=== PATIENT | female | born 1935 | race Caucasian/White ===

== ENCOUNTER 2020-01-04 11:17 | Inpatient (IN) | payer OTHER, MEDICARE ==
--- OUTSIDE RECORDS SUMMARY | 2020-01-04 11:37 | XMS REPORT | Continuity of Care Document ---
:1935 Author Organization [facility] t Address [address] [place] [address] Care Team Providers Name Role Phone Unavailable Unavailable Unavailable Problems This patient has no known problems. Allergies, Adverse Reactions, Alerts This patient has no known allergies or adverse reactions. Medications This patient has no known medications. Procedures This patient has no known procedures. Results This patient has no known results.
[2020-01-04] MEDS ORDERED: DIPHENHYDRAMINE 25 MG TAB/CAP PO PRN (12:17)
[2020-01-04] MEDS ORDERED: LOPERAMIDE HCL 2 MG CAPSULE PO PRN (12:17)
[2020-01-04] MEDS ORDERED: SODIUM CHLORIDE 0.9% 10ML INJ IV PRN (12:23)
[2020-01-04] MEDS ORDERED: POLYETHYL GLY 3350 17 GM/DOSE PO PRN (12:23)
[2020-01-04 12:44] VITALS: BMI 31.1
[2020-01-04] MEDS ORDERED: ALBUTEROL 2.5 MG/3 ML NEB SOL NEB PRN (12:45)
[2020-01-04] MEDS ORDERED: ACETAMINOPHEN 325 MG TABLET PO PRN (12:45)
[2020-01-04 13:15] LABS: Absolute Lymphocytes (CBC) 0.6 K/uL (0.7-4.9); Basophils % 0.6 % (0-1.3); Hematocrit 26.5 % (36.0-45.0); Lymphocytes % 7.8 % (15.3-44.8); MPV 7.9 fL (7.6-11.3); RBC Red Blood Cell Count 2.54 M/uL (3.86-4.86)
[2020-01-04 13:58] LABS: ALT/SGPT 33 U/L (12-78); AST/SGOT 33 U/L (15-37); Albumin 3.1 g/dL (3.4-5.0); Alkaline Phosphatase 102 U/L (45-117); BUN Blood Urea Nitrogen 17 mg/dL (7-18); Bicarbonate 24 mmol/L (21-32); Bilirubin Direct 0.4 mg/dL (0-0.2); Bilirubin Total 1.3 mg/dL (0.2-1.0); Glucose Level 130 mg/dL (74-106); Phosphorus 2.6 mg/dL (2.5-4.9); Potassium 3.4 mmol/L (3.5-5.1); Protein, Total 6.5 g/dL (6.4-8.2); Sodium Level 136 mmol/L (136-145)
[2020-01-04] MEDS ORDERED: PNEUMOCOCCAL VACCINE 0.5 ML IMVAC ONE (14:00)
[2020-01-04] MEDS: NACHLORIDE 0.45% 1,000 ML IV SCH (14:27)
[2020-01-04] MEDS: CIPROFLOXACIN 400mg IV 400 MG/200 ML BAG IV SCH ×2 (14:27→20:25)
[2020-01-04] MEDS: METRONIDAZOLE 500mg IVPB 500 MG/100 ML BAG IV SCH ×2 (14:28→20:25)
[2020-01-04] MEDS: IPRATROPIUM BROM 0.5MG/2.5ML NEB SCH ×2 (14:43→20:00)
[2020-01-04] MEDS: LEVALBUTEROL 1.25 MG/3 ML NEB NEB SCH ×2 (14:43→20:00)
--- NOTE | 2020-01-04 14:44 | RAD REPORT ---
EXAM DESCRIPTION: CT - Chest Abdomen Pelvis W Cont - 01/04/2020 2:12 pm CLINICAL HISTORY: abdominal pain, chest pain COMPARISON: No comparisons TECHNIQUE: Following dynamic enhancement using 100 milliliters nonionic IV contrast, axial imaging o f the chest, abdomen and pelvis was performed. Biphasic technique was utilized through the abdomen. No oral contrast administered. All CT scans are performed using dose optimization technique as appropriate and may include automated exposure control or mA/KV adjustment according to patient size. FINDINGS: Large left pleural effusion is present with near complete atelectasis of the left lower lo be. Trace pleural fluid on the right. No acute infiltrate or mass of the lung parenchyma. No pneumoth orax. No significant aortic or pulmonary arterial tree finding. Mediastinal and hilar regions show no mass or abnormal lymphadenopathy. No chest wall mass or axillary lymphadenopathy. Mild fatty infiltration of the liver is present with no focal liver lesion. Pancreas and spleen witho ut suspicious finding. Gallbladder and biliary tree are unremarkable. Gallstones can be occult on CT imaging. Symmetric renal function is seen with no mass or hydronephrosis. No adrenal abnormalities. Patient has a very minimal hiatal hernia. No gastric wall thickening or mass. No dilated small bowel loops. Appendix is not well defined. No suspicion for appendicitis. Moderate stool volume in the righ t-side of the colon. An 8-9 cm long segment of the left transverse colon shows wall thickening. There is stranding and edema in the adjacent fat as well as the omentum. There are numerous small lymph no carlene in the adjacent fatty tissues. No gross evidence for a colon mass. Stranding abuts the lesser cur vature of the stomach but does not cause gastric wall thickening. There may be some minimal secondary involvement of adjacent small bowel loops. Patient has mild diverticulosis in the sigmoid colon. No other area of active colon disease. No free air or pneumatosis. There is free fluid in the peritoneal cavity collecting in the dependent portion of the pelvis. Uterus is absent. Ovaries are absent or atrophic. No acute or destructive bony process. No significant vascular findings. IMPRESSION: Left transverse colon wall thickening with adjacent edematous/ inflammatory stranding an d multiple adjacent small lymph nodes. This is most likely an acute diverticulitis or nonspecific colitis. The lymph nodes are more numerous than typically seen with a diverticulitis. Malignancy is not eviden t but cannot be excluded. A follow-up colonoscopy after completion of treatment will be needed. Free intraperitoneal fluid without abscess. No free air is present. Large left pleural effusion with near complete left lower lobe atelectasis.
[2020-01-04 19:27] LABS: Protime INR 1.26
[2020-01-04 20:02] LABS: Urine Appearance CLEAR; Urine Bilirubin NEGATIVE (NEG); Urine Blood NEGATIVE (NEG); Urine Color DK YELLOW; Urine Glucose NEGATIVE (NEG); Urine Protein 1+ (NEG); Urine Specific Gravity >=1.030 (1.005-1.030)
[2020-01-04 20:25] LABS: Urine Microscopic Reflex ORDER UMIC
[2020-01-04 20:34] LABS: Urine Bacteria <20 /HPF (<20); Urine Culture Reflex Order NOT NEEDED; Urine Mucus 1+ /HPF (NONE SEEN); Urine RBC NONE SEEN /HPF (NONE SEEN)
[2020-01-05] MEDS: LEVALBUTEROL 1.25 MG/3 ML NEB NEB SCH ×4 (01:50→20:50)
[2020-01-05] MEDS: IPRATROPIUM BROM 0.5MG/2.5ML NEB SCH ×4 (01:50→20:50)
[2020-01-05 05:20] LABS: Absolute Lymphocytes (CBC) 0.5 K/uL (0.7-4.9); Basophils % 0.9 % (0-1.3); Hematocrit 23.4 % (36.0-45.0); Lymphocytes % 11.4 % (15.3-44.8); MPV 7.7 fL (7.6-11.3); RBC Red Blood Cell Count 2.26 M/uL (3.86-4.86)
[2020-01-05 05:25] LABS: BUN Blood Urea Nitrogen 11 mg/dL (7-18); Bicarbonate 26 mmol/L (21-32); Glucose Level 124 mg/dL (74-106); Potassium 3.4 mmol/L (3.5-5.1); Sodium Level 139 mmol/L (136-145)
[2020-01-05] MEDS ORDERED: KCL 20 MEQ/100 mL IVPB 20 MEQ/100 ML BAG IV SCH (06:00)
[2020-01-05] MEDS: ONDANSETRON 4 MG/2 ML VIAL IV PRN ×2 (07:11→23:52)
[2020-01-05 07:30] LABS: Anisocytosis 1+; Blood Morphology Comment NOTED (NOT SEEN); Platelet Estimate ADEQ
[2020-01-05 07:31] LABS: Macrocytosis 1+
[2020-01-05] MEDS: CIPROFLOXACIN 400mg IV 400 MG/200 ML BAG IV SCH ×2 (08:54→21:17)
[2020-01-05] MEDS: METRONIDAZOLE 500mg IVPB 500 MG/100 ML BAG IV SCH ×4 (08:55→23:54)
[2020-01-05] MEDS: PANTOPRAZOLE 40 MG INJ IVP SCH (09:00)
[2020-01-05] MEDS ORDERED: ENOXAPARIN 40 MG/0.4 ML SQ SCH (09:00)
--- NOTE | 2020-01-05 11:45 | RAD REPORT ---
EXAM DESCRIPTION: RAD - Chest Single View - 01/05/2020 11:32 am CLINICAL HISTORY: POST THORA Chest pain. COMPARISON: CHEST PA AND LAT 2 VIEW dated 06/03/2015; CHEST PA AND LAT 2 VIEW dated 08/22/2008; Chest A bdomen Pelvis W Cont dated 01/04/2020 FINDINGS: Portable technique limits examination quality. No postprocedure pneumothorax is seen. Small opacity in the left lung base probably represents atelec tasis. Small volume residual left pleural fluid is likely present. Heart is moderately enlarged. No d isplaced fractures. IMPRESSION: No postprocedure pneumothorax.
--- NOTE | 2020-01-05 11:52 | RAD REPORT ---
EXAM DESCRIPTION: US - Thoracentesis w/ US Guide - 01/05/2020 11:46 am CLINICAL HISTORY: Pleural effusion. large pleural effusion COMPARISON: No comparisons FINDINGS: Preoperative diagnosis: Left pleural effusion Post operative diagnosis: Same Conscious Sedation: None. Estimated blood loss: Minimal Specimens:A small volume of fluid was sent for requested lab studies. The patient was placed in the upright recumbent position and the left posterior chest wall was preppe d and draped in the usual sterile fashion. 1% Lidocaine was infiltrated into the soft tissues for lo verónica anesthesia. Under sonographic guidance, a thoracentesis needle and 6 Serbian catheter was advance d into the left pleural space. Approximately 900 mL yellow fluid was aspirated. Samples were sent to pathology for requested analysis. The patient tolerated the procedure without immediate complication and transferred to the floor in stable condition. IMPRESSION: Successful ultrasound-guided thoracentesis as detailed.
--- NOTE | 2020-01-05 13:14 | P.PN ---
Subjective Date of Service: 01/05/20 Chief Complaint: DYSPNEA, COUGH. ABDOMEN PAIN. Subjective: Improving MS. GORDON IS FEELING A LOT BETTER, STILL HAS COUGH, SOME DYSPNEA, L SIDE ABDOMEN PAIN. Review of Systems Respiratory: Cough Gastrointestinal: Abdominal Pain ( LUQ) Physical Examination - Vital Signs Temperature: 97.9 F Blood Pressure: 132/64 Pulse: 93 Respirations: 15 Pulse Ox (%): 95 - Physical Exam General: Mild distress HEENT: Atraumatic, PERRLA, EOMI Neck: Supple, JVD not distended Respiratory: Clear to auscultation bilaterally, Normal air movement Cardiovascular: Regular rate/rhythm, Normal S1 S2 Gastrointestinal: Normal bowel sounds, No tenderness Musculoskeletal: No tenderness Integumentary: No rashes Neurological: Normal speech, Normal tone, Normal affect Lymphatics: No axilla or inguinal lymphadenopathy - Studies Laboratory Data (last 24 hrs) 01/05/20 04:57: WBC 4.3 D, Hgb 8.1 L, Hct 23.4 L, Plt Count 265 01/05/20 04:57: Sodium 139, Potassium 3.4 L, BUN 11, Creatinine 0.44 L, Glucose 124 H, Magnesium 2.0 01/04/20 18:55: PT 14.8 H, INR 1.26, APTT 26.0 01/04/20 13:00: Sodium 136, Potassium 3.4 L, BUN 17, Creatinine 0.62, Glucose 130 H, Phosphorus 2.6, Magnesium 2.0, Total Bilirubin 1.3 H, AST 33, ALT 33, Alkaline Phosphatase 102 01/04/20 13:00: WBC 7.7, Hgb 9.1 L, Hct 26.5 L, Plt Count 316 Medications List Reviewed: Yes Assessment And Plan - Current Problems (Diagnosis) (1) Acute diverticulitis of intestine Current Visit: Yes Status: Acute Plan: IV ABX. GI FOLLOW UP OUTPATIENT. DIVERTICULITIS MOST LIKELY CAN'T RULE OUT MALIGNANCY. (2) Pleural effusion Current Visit: Yes Status: Acute Plan: NEW SINCE 2015 I ORDERED DIAGNOSTIC AND THERAPEUTIC TAP. Orders (last 24 hrs) 01/04/20 12:17 Diphenhydramine [Benadryl Tab/Cap] 25 mg PO BEDTIME PRN Loperamide [Imodium] 4 mg PO Q4H PRN 01/04/20 12:23 Ns 0.9% Vial [Sodium Chloride 10 mL Inj] 10 ml IV UD PRN Ondansetron [Zofran] 4 mg IV Q6H PRN Polyethyl Gly 3350 [Glycolax] 17 gm PO BEDTIME PRN Activity Order SEECOM Cardiac Monitoring (telemetry) CONT Daily Weight 0500 Sequential Compression Device NOW 01/04/20 12:45 Acetaminophen [Tylenol -Tablet] 650 mg PO Q6H PRN Albuterol Neb [Proventil 0.083% Neb Soln] 2.5 mg NEB Q2H PRN 01/04/20 12:52 REFLEX ORDER Admit/Bed Request Routine 01/04/20 12:54 Magnesium Replacement 0600 Potassium Replacement 0600 01/04/20 13:00 Vitamin D,1,25 Dihydroxy Routine CIPROFLOXACIN 400mg IV [Cipro 400 mg/200 mL IVPB (PREMIX)] 400 mg in 200 ml IV Q12HR Nachloride 0.45% [Sodium Chloride 0.45%] 1,000 ml IV 30 mls/hr Blood Culture Stat 01/04/20 14:00 Ipratropium Neb [Atrovent Neb] 0.5 mg NEB [id number] Levalbuterol [Xopenex] 1.25 mg NEB [id number] METRONIDAZOLE 500mg IVPB [Flagyl 500MG/100 ML IV PREMIX] 500 mg in 100 ml IV TID 01/04/20 17:46 Nursing Orders Routine 01/04/20 21:51 SBAR Routine 01/05/20 00:01 NPO [DIET] 01/05/20 09:00 Pantoprazole Inj [Protonix Inj] 40 mg IVP DAILY 01/05/20 11:00 Body Fluid Cell Count Routine Miscellaneous Test Lab Routine Acid Fast Bacilli Culture & Sm Routine Body Fluid Culture Routine Fungal Culture and Stain Routine 01/05/20 11:07 Change Pt from Observation to Inpatient Routine 01/05/20 Dinner Full Liquid [DIET] 01/06/20 05:00 BMP [Basic Metabolic Panel] Routine
[2020-01-05 13:56] LABS: Appearance TURBID (CLEAR); Body Fluid Source PLEURAL; Body Fluid WBC 915 /mm^3; Color of fluid Yellow (COLORLESS)
[2020-01-05] MEDS ORDERED: POTASSIUM 25 MEQ EFFERV TAB PO ONE (19:00)
[2020-01-05] MEDS: NACHLORIDE 0.45% 1,000 ML IV SCH (22:20)
[2020-01-06] MEDS: IPRATROPIUM BROM 0.5MG/2.5ML NEB SCH ×2 (02:00→08:10)
[2020-01-06] MEDS: LEVALBUTEROL 1.25 MG/3 ML NEB NEB SCH ×2 (02:00→08:10)
[2020-01-06 05:53] LABS: BUN Blood Urea Nitrogen 9 mg/dL (7-18); Bicarbonate 27 mmol/L (21-32); Glucose Level 119 mg/dL (74-106); Potassium 3.9 mmol/L (3.5-5.1); Sodium Level 141 mmol/L (136-145)
[2020-01-06 07:16] LABS: Absolute Lymphocytes (CBC) 0.6 K/uL (0.7-4.9); Hematocrit 27.5 % (36.0-45.0); Lymphocytes % 9.8 % (15.3-44.8); MPV 7.9 fL (7.6-11.3); RBC Red Blood Cell Count 2.64 M/uL (3.86-4.86)
[2020-01-06] MEDS: CIPROFLOXACIN 400mg IV 400 MG/200 ML BAG IV SCH (08:09)
[2020-01-06] MEDS: METRONIDAZOLE 500mg IVPB 500 MG/100 ML BAG IV SCH (08:10)
[2020-01-06] MEDS: PANTOPRAZOLE 40 MG INJ IVP SCH (08:10)
[2020-01-06] MEDS ORDERED: POTASSIUM 25 MEQ EFFERV TAB PO ONE (09:00)
[2020-01-06 09:30] VITALS: O2SAT 96
[2020-01-06 09:31] VITALS: BP 133/63; TEMP 97.5
--- NOTE | 2020-01-06 14:56 | P.DS ---
Admission Date: 01/05/20 Discharge Date: 01/06/20 Disposition: ROUTINE DISCHARGE Discharge Condition: FAIR Reason for Admission: DYSPNEA, COUGH. ABDOMEN PAIN. - Problems (1) Acute diverticulitis of intestine Status: Acute (2) Pleural effusion Status: Acute Hospital Course: MS. GORDON HAS DIVERTICULITIS OF TR COLON. SHE IS FEELING GREAT WITH NO PAIN. SHE HAD LARGE PLEURAL EFFUSION ON L SIDE THAT I HAD DRAINED. SHE HAS TRANSUDATIVE FLUID AND CYTOLOGY IS PENDING. I WANT TO MAKE SURE THERE IS NO CANCER IN THE REGION. SHE SAYS HER GI DOCTOR DID NOT WANT TO DO ANY MORE SCOPES SHE IS 84 YEARS OLD. SHE IS FEELING GREAT AND WANTS TO GO HOME. SHE IS STABLE TO GO HOME ON ORAL ANTIBIOTICS. CT SCANS SHOWS MORE LYMPH NODES THAN USU AL IN ABDOMEN. I ADVISED COLONOSCOPY AFTER INFECTION IS CLEARED BUT SHE DOES NOT WANT TO . Vital Signs/Physical Exam: Temp Pulse Resp BP Pulse Ox 97.5 F 102 H 16 133/63 96 01/06/20 08:00 01/06/20 08:00 01/06/20 08:00 01/06/20 08:00 01/06/20 08:00 General: Alert, In no apparent distress HEENT: Atraumatic, PERRLA, EOMI Neck: Supple, JVD not distended Respiratory: Clear to auscultation bilaterally, Normal air movement Cardiovascular: Regular rate/rhythm, Normal S1 S2 Gastrointestinal: Normal bowel sounds, No tenderness Musculoskeletal: No tenderness Integumentary: No rashes Neurological: Normal speech, Normal tone, Normal affect Lymphatics: No axilla or inguinal lymphadenopathy Laboratory Data at Discharge: WBC 5.7 K/uL (4.3-10.9) D 01/06/20 06:45 Hgb 9.4 g/dL (12.0-15.0) L 01/06/20 06:45 Hct 27.5 % (36.0-45.0) L D 01/06/20 06:45 Plt Count 345 K/uL (152-406) D 01/06/20 06:45 PT 14.8 SECONDS (9.5-12.5) H 01/04/20 18:55 INR 1.26 01/04/20 18:55 APTT 26.0 SECONDS (24.3-36.9) 01/04/20 18:55 Sodium 141 mmol/L (136-145) 01/06/20 05:04 Potassium 3.9 mmol/L (3.5-5.1) 01/06/20 05:04 BUN 9 mg/dL (7-18) 01/06/20 05:04 Creatinine 0.53 mg/dL (0.55-1.3) L 01/06/20 05:04 Glucose 119 mg/dL (74-106) H 01/06/20 05:04 Phosphorus 2.6 mg/dL (2.5-4.9) 01/04/20 13:00 Magnesium 2.0 mg/dL (1.8-2.4) 01/05/20 04:57 Total Bilirubin 1.3 mg/dL (0.2-1.0) H 01/04/20 13:00 AST 33 U/L (15-37) 01/04/20 13:00 ALT 33 U/L (12-78) 01/04/20 13:00 Alkaline Phosphatase 102 U/L (45-117) 01/04/20 13:00 Home Medications: Ciprofloxacin HCl [Cipro 500 MG Tablet] 500 mg PO BID #28 tab 01/06/20 metroNIDAZOLE [Flagyl] 500 mg PO Q8H #42 tablet 01/06/20 New Medications: Ciprofloxacin HCl [Cipro 500 MG Tablet] 500 mg PO BID #28 tab metroNIDAZOLE [Flagyl] 500 mg PO Q8H #42 tablet Patient Discharge Instructions: COME TO OFFICE IN ONE WEEK. MAKE APT. Followup: Trenton Nathan MD [Primary Care Provider] - 1 Week (Call to make an appointment. )
[2020-01-08 12:59] LABS: Vitamin D 1,25-Dihydroxy Total 42 pg/mL (18-72); Vitamin D,1,25-OH2, D2 <8 pg/mL
== END 2020-01-06 10:28 | disposition home or self-care (01) | DRG 392 ==
LOC: 2ND 11:33 → OBSVTOIN 01-05 11:07
PROVIDERS: ADMIT Internal Medicine; ATTEND Internal Medicine
PROC: 0W9B3ZZ Drainage of Left Pleural Cavity, Percutaneous Approach (ICD-10-PCS; principal; 2020-01-05)
DX: K57.32 Diverticulitis of large intestine without perforation or abscess without bleeding (principal); J90 Pleural effusion, not elsewhere classified
CPT/HCPCS: 32555; 36415; 71045; 71260; 74177; 80048; 80076; 81003; 81015; 82607; 82652; 83735; 84100; 84132; 84443; 85025; 85610; 85730; 87015; 87040; 87070; 87102; 87116; 87206; 88108; 88305; 89050; 90471; 90670; 94640; C9113; G0378; G0379; J0744; J2405; J3480; Q9967; U0003

== ENCOUNTER 2021-12-21 20:09 | Emergency (ER) | payer OTHER, MEDICARE ==
--- OUTSIDE RECORDS SUMMARY | 2021-12-21 20:22 | XMS REPORT | Continuity of Care Document ---
:1935 Author Organization [facility] t Address [address] [place] [id number] Care Team Providers Name Role Phone YAS CEE Attending Clinician Unavailable Payers Payer Name Policy Type Policy Number Effective Date Expiration Date S tere MEDICARE PART A \T\ [id number] 1999 B 00:00:00 [facility] [id number] 2015 MEDICARE SUPPLEMENT 00:00:00 Problems This patient has no known problems. Allergies, Adverse Reactions, Alerts Allergy Allergy Status Severity Reaction(s) Onset Inactive Treating Comm ents Source Name Type Date Date Clinician NO KNOWN Drug Active [facility] ALLERGIE Class [facility] Medications This patient has no known medications. Procedures This patient has no known procedures. Encounters Start End Encounter Admission Attending Care Care Encounter Source Date/Time Date/Time Type Type Clinicians Facility Department ID 2020-06-23 2020-06-23 Outpatient Rosy CEE [facility] [id number] [facility] 08:55:00 08:55:00 YAS [facility] Results This patient has no known results.
[2021-12-21 20:45] LABS: Urine Blood Negative (Negative); Urine Glucose Negative (Negative); Urine Protein Negative (Negative); Urine Specific Gravity <=1.005 (1.005-1.030); Urine pH 6.5 (5.0-7.0)
[2021-12-21 21:16] LABS: Absolute Lymphocytes (CBC) 1.3 K/uL (0.7-4.9); Hematocrit 23.9 % (36.0-45.0); Lymphocytes % 28.8 % (15.3-44.8); MCV 110.8 fL (80-100); MPV 7.4 fL (7.6-11.3); RBC Red Blood Cell Count 2.15 M/uL (3.86-4.86)
--- NOTE | 2021-12-21 21:24 | RAD REPORT ---
EXAM DESCRIPTION: RAD - Chest Single View - 12/21/2021 9:16 pm CLINICAL HISTORY: Chest pain COMPARISON: Chest Single View dated 01/05/2020; CHEST PA AND LAT 2 VIEW dated 06/03/2015; CHEST PA AND LAT 2 VIEW dated 08/22/2008 FINDINGS: Lines: None. Lungs: No evidence of edema or pneumonia. Pleural: No significant pleural effusions or pneumothorax. Cardiac: Cardiomegaly. Bones: No acute fractures. Other: IMPRESSION: No acute cardiopulmonary disease.
[2021-12-21 21:34] LABS: Potassium 3.9 mmol/L (3.5-5.1); Troponin High Sensitivity 8.3 pg/mL (<58.9)
[2021-12-21 22:12] LABS: Blood Morphology Comment NOTED (NOT SEEN); Macrocytosis 2+; Platelet Estimate ADEQ; White Blood Cell Scan OK (OK)
--- NOTE | 2021-12-21 23:36 | EDPHYS ---
Physician Documentation [facility] Name: Claudia Thomas Age: 86 yrs Sex: Female : 1935 Arrival Date: 12/21/2021 Time: 20:12 Bed 6 Private MD: ED Physician Terrence Up HPI: 12/22 02:04 This 86 yrs old Female presents to ER via Ambulatory with complaints of Shortness Of kdr Breath, Leg Swelling, Headache. 02:05 Patient's daughter brought her to the the ED today with a concern for shortness of kdr breath and swelling of her lower extremities. Patient had been to urgent care earlier today and had an evaluation there. No etiology was found at that time. It was thought that perhaps she may have some mild congestive heart failure. The daughter had taken the patient home from urgent care and noted that it seemed her lower extremity swelling was progressively worsening as she had some ecchymosis on the lateral aspect of her left ankle. Given that the daughter felt things were progressing. She brought her to the ED for further evaluation. Patient is not in any acute distress and does not require emergent intervention at time of presentation. Onset: The symptoms/episode began/occurred gradually, at an unknown time. Severity of symptoms: At their worst the symptoms were mild moderate just prior to arrival, in the emergency department the symptoms are unchanged. The patient has not experienced similar symptoms in the past. The patient has been recently seen by a physician: The patient has been recently seen at an urgent care, just prior to arrival, today. Historical: - Allergies: 12/21 20:28 No Known Allergies; lg3 - Home Meds: 20:28 losartan 100 mg oral tab 1 tab once daily [Active]; furosemide 20 mg Oral tab 1 tab lg3 once daily [Active]; - PMHx: 20:28 hypertension; CHF; Anemia; lg3 - PSHx: 20:28 hysterectomy; lg3 - Immunization history:: Adult Immunizations up to date, moderna X3. - Social history:: Smoking status: Patient denies any tobacco usage or history of. Patient/guardian denies using alcohol, street drugs. ROS: 12/22 02:05 Constitutional: Negative for fever, chills, and weight loss, Eyes: Negative for injury, kdr pain, redness, and discharge, Neck: Negative for injury, pain, and swelling, Cardiovascular: Negative for chest pain, palpitations, and edema, Respiratory: Negative for shortness of breath, cough, wheezing, and pleuritic chest pain, Abdomen/GI: Negative for abdominal pain, nausea, vomiting, diarrhea, and constipation, Back: Negative for injury and pain, : Negative for injury, bleeding, discharge, and swelling, MS/Extremity: Negative for injury and deformity. Cardiovascular: Positive for edema. Respiratory: Positive for dyspnea on exertion, shortness of breath, on exertion. Exam: 02:05 Constitutional: This is a well developed, well nourished patient who is awake, alert, kdr and in no acute distress. Head/Face: Normocephalic, atraumatic. Eyes: Pupils equal round and reactive to light, extra-ocular motions intact. Lids and lashes normal. Conjunctiva and sclera are non-icteric and not injected. Cornea within normal limits. Periorbital areas with no swelling, redness, or edema. Neck: Trachea midline, no thyromegaly or masses palpated, and no cervical lymphadenopathy. Supple, full range of motion without nuchal rigidity, or vertebral point tenderness. No Meningismus. Chest/axilla: Normal chest wall appearance and motion. Nontender with no deformity. No lesions are appreciated. Cardiovascular: Regular rate and rhythm with a normal S1 and S2. No gallops, murmurs, or rubs. Normal PMI, no JVD. No pulse deficits. Respiratory: Lungs have equal breath sounds bilaterally, clear to auscultation and percussion. No rales, rhonchi or wheezes noted. No increased work of breathing, no retractions or nasal flaring. Abdomen/GI: Soft, non-tender, with normal bowel sounds. No distension or tympany. No guarding or rebound. No evidence of tenderness throughout. Back: No spinal tenderness. No costovertebral tenderness. Full range of motion. MS/ Extremity: Pulses equal, no cyanosis. Neurovascular intact. Full, normal range of motion. Neuro: Awake and alert, GCS 15, oriented to person, place, time, and situation. Cranial nerves II-XII grossly intact. Motor strength 5/5 in all extremities. Sensory grossly intact. Cerebellar exam normal. Normal gait. Psych: Awake, alert, with orientation to person, place and time. Behavior, mood, and affect are within normal limits. 02:05 Skin: Appearance: normal except for affected area, ecchymosis, noted on the, left lateral ankle, that are mild. Vital Signs: 12/21 20:26 BP 150 / 49; Pulse 83; Resp 18 S; Temp 98.1(O); Pulse Ox 99% on R/A; Weight 83.01 kg lg3 (R); Height 5 ft. 4 in. (162.56 cm) (R); 20:52 BP 140 / 59; Pulse 84; Resp 18; Pulse Ox 99% on R/A; Pain 0/10; tw5 21:46 BP 134 / 56; Pulse 78; Resp 20; Pulse Ox 98% on R/A; hb 22:50 BP 130 / 59; Pulse 76; Resp 18; Pulse Ox 97% on R/A; tw5 23:21 BP 132 / 52; Pulse 74; Resp 15; Pulse Ox 97% ; hb 20:26 Body Mass Index 31.41 (83.01 kg, 162.56 cm) lg3 MDM: 23:36 Patient medically screened. kdr 12/22 02:05 Data reviewed: vital signs, nurses notes, lab test result(s), radiologic studies. kdr Counseling: I had a detailed discussion with the patient and/or guardian regarding: the historical points, exam findings, and any diagnostic results supporting the discharge/admit diagnosis, lab results, radiology results, the need for outpatient follow up. ED course: Patient remained stable in the ED. She had no obvious evidence of extensive or progressive pulmonary edema or peripheral edema. She was happy with the care provided the plan for discharge and follow-up. I reviewed all of the laboratory data with the daughter and patient. I respond to questions as needed. They were happy with the care provider and the plan for discharge and follow-up.. 12/21 20:46 Order name: Urine Dipstick-Ancillary; Complete Time: 21:42 EDMS 12/21 20:53 Order name: Basic Metabolic Panel; Complete Time: 21:42 kdr 12/21 20:53 Order name: CBC with Diff; Complete Time: 22:23 kdr 12/21 20:53 Order name: NT PRO-BNP; Complete Time: 21:42 kdr 12/21 20:53 Order name: Troponin HS; Complete Time: 21:42 kdr 12/21 21:20 Order name: CBC Smear Scan; Complete Time: 22:23 EDVA 12/21 20:53 Order name: XRAY Chest (1 view); Complete Time: 21:42 kdr 12/21 20:53 Order name: EKG; Complete Time: 20:54 kdr 12/21 20:53 Order name: Cardiac monitoring; Complete Time: 20:58 kdr 12/21 20:53 Order name: EKG - Nurse/Tech; Complete Time: 22:55 kdr 12/21 20:53 Order name: IV Saline Lock; Complete Time: 20:58 kdr 12/21 20:53 Order name: Labs collected and sent; Complete Time: 20:58 kdr 12/21 20:53 Order name: O2 Per Protocol; Complete Time: 20:59 kdr 12/21 21:42 Order name: US Extremity Venous W Compression Pete kdr 12/21 20:53 Order name: O2 Sat Monitoring; Complete Time: 20:59 kdr Administered Medications: No medications were administered Disposition Summary: 12/21/21 23:36 Discharge Ordered Location: Home kdr Problem: new kdr Symptoms: have improved kdr Condition: Stable kdr Diagnosis - Shortness of breath kdr - Lower extremity swelling bilateral kdr Followup: kdr - With: Private Physician - When: 2 - 3 days - Reason: If symptoms return, Further diagnostic work-up, Recheck today's complaints, Continuance of care, Re-evaluation by your physician Discharge Instructions: - Discharge Summary Sheet kdr - Shortness of Breath, Adult, [id number] kdr - Cough, Adult, [id number] kdr Forms: - Medication Reconciliation Form kdr - Thank You Letter kdr Signatures: Dispatcher [employer] [facility] Terrence Up MD MD kdr Marina Khan, RN RN lg3
--- NOTE | 2021-12-21 23:36 | ER ---
Nurse's Notes [facility] Name: Claudia Thomas Age: 86 yrs Sex: Female : 1935 Arrival Date: 12/21/2021 Time: 20:12 Bed 6 Private MD: Diagnosis: Shortness of breath;Lower extremity swelling bilateral Presentation: 12/21 20:26 Chief complaint: Patient's son or daughter states: went to urgent care this afternnon lg3 for ABD and throat pain and discharged. now she is extremely short of breath and her left leg is really swollen. Coronavirus screen: Client denies travel out of the [place] in the last 14 days. At this time, the client does not indicate any symptoms associated with coronavirus-19. Ebola Screen: No symptoms or risks identified at this time. Initial Sepsis Screen: Does the patient meet any 2 criteria? No. Patient's initial sepsis screen is negative. Does the patient have a suspected source of infection? No. Patient's initial sepsis screen is negative. Risk Assessment: Do you want to hurt yourself or someone else? Patient reports no desire to harm self or others. Onset of symptoms is unknown. 20:26 Method Of Arrival: Ambulatory lg3 20:26 Acuity: ALFRED 3 lg3 Triage Assessment: 20:28 General: Appears in no apparent distress. uncomfortable, Behavior is calm, cooperative. lg3 Pain: Complains of pain in suprapubic area. EENT: No deficits noted. No signs and/or symptoms were reported regarding the EENT system. Neuro: No deficits noted. Level of Consciousness is awake, alert, obeys commands, Oriented to person, place, time, situation. Cardiovascular: Reports shortness of breath, Denies chest pain, Capillary refill < 3 seconds Clubbing of nail beds is absent JVD is absent Patient's skin is warm and dry. Respiratory: Reports shortness of breath Breath sounds are clear bilaterally. Onset: The symptoms/episode began/occurred today, the patient has mild shortness of breath. GI: Abdomen is round non-distended, Reports lower abdominal pain. : No deficits noted. No signs and/or symptoms were reported regarding the genitourinary system. Derm: Skin is intact, is healthy with good turgor, Skin is dry, Skin temperature is warm Parent/caregiver reports the patient having increased swelling to lower left leg and abdomen. Musculoskeletal: No deficits noted. No signs and/or symptoms reported regarding the musculoskeletal system. Circulation, motion, and sensation intact. Range of motion: intact in all extremities. Historical: - Allergies: 20:28 No Known Allergies; lg3 - Home Meds: 20:28 losartan 100 mg oral tab 1 tab once daily [Active]; furosemide 20 mg Oral tab 1 tab lg3 once daily [Active]; - PMHx: 20:28 hypertension; CHF; Anemia; lg3 - PSHx: 20:28 hysterectomy; lg3 - Immunization history:: Adult Immunizations up to date, moderna X3. - Social history:: Smoking status: Patient denies any tobacco usage or history of. Patient/guardian denies using alcohol, street drugs. Screenin:33 Abuse screen: Denies threats or abuse. Denies injuries from another. Nutritional lg3 screening: No deficits noted. Tuberculosis screening: No symptoms or risk factors identified. 20:52 Fall Risk Secondary diagnosis (15 points). tw5 Assessment: 20:52 General: Daughter at the bedside " She went to the urgent care today, they did a CT tw5 scan for her diverticulites. There is sheet of paper at the bedside that states what all they did. She has a headache, she is short of breath and extremely swollen.". Neuro: Level of Consciousness is awake, alert, obeys commands, Oriented to person, place, time, situation. Cardiovascular: Heart tones S1 S2 present Pulses are 1+ in left dorsalis pedis artery are 2+ in right dorsalis pedis artery Edema is 1+ to left ankle, left foot and left toes Rhythm is regular. Respiratory: Airway is patent Trachea midline Respiratory effort is even, unlabored. : Urine is clear. 21:46 Reassessment: Patient appears in no apparent distress at this time. Patient and/or hb family updated on plan of care and expected duration. Pain level reassessed. Patient is alert, oriented x 3, equal unlabored respirations, skin warm/dry/pink. 22:50 General: Appears in no apparent distress. Behavior is calm, cooperative, appropriate tw5 for age. 23:21 Reassessment: Patient appears in no apparent distress at this time. Patient and/or hb family updated on plan of care and expected duration. Pain level reassessed. Patient is alert, oriented x 3, equal unlabored respirations, skin warm/dry/pink. Vital Signs: 20:26 BP 150 / 49; Pulse 83; Resp 18 S; Temp 98.1(O); Pulse Ox 99% on R/A; Weight 83.01 kg lg3 (R); Height 5 ft. 4 in. (162.56 cm) (R); 20:52 BP 140 / 59; Pulse 84; Resp 18; Pulse Ox 99% on R/A; Pain 0/10; tw5 21:46 BP 134 / 56; Pulse 78; Resp 20; Pulse Ox 98% on R/A; hb 22:50 BP 130 / 59; Pulse 76; Resp 18; Pulse Ox 97% on R/A; tw5 23:21 BP 132 / 52; Pulse 74; Resp 15; Pulse Ox 97% ; hb 20:26 Body Mass Index 31.41 (83.01 kg, 162.56 cm) lg3 ED Course: 20:12 Patient arrived in ED. ja2 20:28 Triage completed. lg3 20:28 Arm band placed on left wrist. lg3 20:39 Marline Starkey is Primary Nurse. tw5 20:52 Terrence Up MD is Attending Physician. kdr 20:52 Patient has correct armband on for positive identification. Placed in gown. Bed in low tw5 position. Call light in reach. Adult w/ patient. Client placed on continuous cardiac and pulse oximetry monitoring. NIBP monitoring applied. Door closed. Noise minimized. Moved to private room. Warm blanket given. Verbal reassurance given. 20:59 Basic Metabolic Panel Sent. tw5 20:59 CBC with Diff Sent. tw5 20:59 NT PRO-BNP Sent. tw5 20:59 Troponin HS Sent. tw5 21:18 XRAY Chest (1 view) In Process Unspecified. EDMS 22:41 US Extremity Venous W Compression Pete In Process Unspecified. EDMS 23:56 No provider procedures requiring assistance completed. IV discontinued, intact, hb bleeding controlled, No redness/swelling at site. Administered Medications: No medications were administered Medication: 23:57 VIS not applicable for this client. hb Outcome: 23:36 Discharge ordered by . kdr 23:56 Discharged to home via wheelchair. hb 23:56 Condition: stable 23:56 Discharge instructions given to patient, family, Instructed on discharge instructions, follow up and referral plans. Demonstrated understanding of instructions, follow-up care. 23:57 Patient left the ED. Signatures: Dispatcher [employer] Terrence Law MD MD kdr Baxter, Heather RN RN Marina Reis RN RN lg3 Anna Olvera Tiffany 5
[2021-12-22 02:03] VITALS: TEMP 98.1
[2021-12-22 02:11] VITALS: O2SAT 97
[2021-12-22 02:13] VITALS: BP 132/52
--- NOTE | 2021-12-22 10:21 | EKG ---
Test Date: 2021-12-21 Test Time: 21:28:53 Quarter Backer: GILMAR MEASUREMENT RESULTS: Intervals: Rate: 77 LA: 186 QRSD: 88 QT: 438 QTc: 495 Aurora: P: 65 LA: 186 QRS: 38 T: 48 INTERPRETIVE STATEMENTS: Normal sinus rhythm Prolonged QT Abnormal ECG Compared to ECG 07/30/2011 09:19:16 Prolonged QT interval now present Electronically Signed On 12-22-21 10:19:59 CDT by Dre Romero
--- NOTE | 2021-12-22 15:29 | RAD REPORT ---
EXAM DESCRIPTION: US - Extrem Venous W Compress Pete - 12/21/2021 10:40 pm CLINICAL HISTORY: Left calf swelling today TECHNIQUE: Real-time duplex ultrasound scan of the bilateral lower extremity veins integrating B-mod e two-dimensional vascular structure, Doppler spectral analysis, color flow Doppler imaging and compr ession. COMPARISON: No relevant prior studies available. FINDINGS: Right deep veins: Unremarkable. No DVT in the right common femoral, femoral, proximal deep femoral, popliteal or visualized calf veins. The veins demonstrate normal color flow, are norm ally compressible, with normal phasic flow and/or augmentation response. Right superficial veins: Unremarkable. No thrombus in the visualized right great saphenous vein. Left deep veins: Unremarkable. No DVT in the left common femoral, femoral, proximal deep femoral, popliteal or visualized calf veins. The veins demonstrate normal color flow, are normally compress ible, with normal phasic flow and/or augmentation response. Left superficial veins: Unremarkable. No thrombus in the visualized left great saphenous vein. Soft tissues: No acute findings. No popliteal cyst. IMPRESSION: No evidence for deep venous thrombosis within the bilateral lower extremity. Electronically signed by: Blaine Gregory MD 12/21/2021 11:14 PM CDT Due to temporary technical issues with the PACS/Fluency reporting system, reports are being signed by the in house radiologists without review as a courtesy to insure prompt reporting. The interpreting radiologist is fully responsible for the content of the report.
== END 2021-12-21 23:57 | disposition home or self-care (01) ==
LOC: ER 20:09
DX: R06.02 Shortness of breath (principal); R22.43 Localized swelling, mass and lump, lower limb, bilateral; I10 Essential (primary) hypertension; I50.9 Heart failure, unspecified
CPT/HCPCS: 36415; 71045; 80048; 81003; 83880; 84484; 85025; 93005; 93970; 99283

== ENCOUNTER 2021-12-23 13:29 | Inpatient (IN) | payer OTHER, MEDICARE ==
--- OUTSIDE RECORDS SUMMARY | 2021-12-23 13:32 | XMS REPORT | Continuity of Care Document ---
:1935 Author Organization [facility] t Address [address] [place] [id number] Care Team Providers Name Role Phone YAS CEE Attending Clinician Unavailable Payers Payer Name Policy Type Policy Number Effective Date Expiration Date S tere MEDICARE PART A \T\ [id number] 1999 B 00:00:00 [facility] [id number] 2015 MEDICARE SUPPLEMENT 00:00:00 Problems This patient has no known problems. Allergies, Adverse Reactions, Alerts Allergy Allergy Status Severity Reaction(s) Onset Inactive Treating Comm ents Source Name Type Date Date Clinician NO KNOWN Drug Active [facility] This patient has no known medications. Procedures This patient has no known procedures. Encounters Start End Encounter Admission Attending Care Care Encounter Source Date/Time Date/Time Type Type Clinicians Facility Department ID 2020-06-23 2020-06-23 Outpatient Rosy CEE [facility] [id number] [facility] 08:55:00 08:55:00 YAS [facility] Results This patient has no known results.
[2021-12-23 14:30] LABS: Absolute Lymphocytes (CBC) 1.1 K/uL (0.7-4.9); Lymphocytes % 22.6 % (15.3-44.8); MCV 110.8 fL (80-100); MPV 7.3 fL (7.6-11.3); RBC Red Blood Cell Count 2.17 M/uL (3.86-4.86)
[2021-12-23 14:39] LABS: SARS-CoV-2 Antigen Rapid Res Negative (Negative)
[2021-12-23 14:50] LABS: Albumin 3.5 g/dL (3.4-5.0); Bilirubin Total 0.7 mg/dL (0.2-1.0); Protein, Total 6.2 g/dL (6.4-8.2)
--- NOTE | 2021-12-23 15:02 | RAD REPORT ---
EXAM DESCRIPTION: RAD - Chest Single View - 12/23/2021 2:55 pm CLINICAL HISTORY: SOB COMPARISON: Chest Single View dated 12/21/2021; Chest Single View dated 01/05/2020; CHEST PA AND LAT 2 VIEW dated 06/03/2015; CHEST PA AND LAT 2 VIEW dated 08/22/2008 FINDINGS: Lines: None. Lungs: No evidence of edema or pneumonia. Pleural: No significant pleural effusions or pneumothorax. Cardiac: Cardiomegaly. Atherosclerosis . Mediastinum: Within normal limits. Bones: No acute fractures. Other: None IMPRESSION: No acute cardiopulmonary disease.
--- NOTE | 2021-12-23 15:30 | RAD REPORT ---
EXAM DESCRIPTION: CTAbdomen Pelvis W Contrast - 12/23/2021 3:02 pm CLINICAL HISTORY: Lower abdominal pain. hx of diverticulitis COMPARISON: No comparisons TECHNIQUE: CT of the abdomen and pelvis was performed. All CT scans are performed using dose optimization technique as appropriate and may include automated exposure control or mA/KV adjustment according to patient size. FINDINGS: Lower chest: Mild circumferential thickened distal esophagus. Cardiomegaly. Liver: Too small characterize liver lesions which are most certainly benign. Biliary: No biliary ductal dilatation. Stomach: No significant focal abnormality. Duodenum: No significant focal abnormality. Pancreas: No significant abnormality. Spleen: No significant abnormality. Adrenal: No suspicious lesions. Kidney/ureter: No hydronephrosis. No renal calculi. Retroperitoneum: No retroperitoneal adenopathy. Vascular: No aneurysm. Bowel: Possible neoplasm at the mid transverse colon. No bowel obstruction is identified. This is non circumferential.. No appendicitis. Peritoneum: No ascites or free air. Bladder: Grossly unremarkable. Reproductive: No adnexal masses. Hysterectomy. Bones: No acute fracture. Multilevel degenerative changes are present in the spine. Other: n/a IMPRESSION: No acute intra-abdominal or pelvic finding. Findings are suspicious for a non circumfere ntial colonic neoplasm at the level of the mid transverse colon. Colonoscopy could better evaluate. N o bowel obstruction.
--- NOTE | 2021-12-23 15:42 | ER ---
Nurse's Notes [facility] Name: Claudia Thomas Age: 86 yrs Sex: Female : 1935 Arrival Date: 12/23/2021 Time: 13:32 Bed 7 Private MD: Trenton Nathan V Diagnosis: Lower abdominal pain, unspecified;Anemia, unspecified;Shortness of breath Presentation: 12/23 13:37 Chief complaint: Patient states: and my lower back hurts Patient's son or daughter tw2 states: she has internal bleeding going on per Dr. Birmingham. she is supposed to have a stat prx. she is loosing a lot of blood but not sure where. she is exhausted and swelling in her stomach and in her leg. she was just here on Wednesday and we saw dr. birmingham's PA yesterday. Coronavirus screen: At this time, the client does not indicate any symptoms associated with coronavirus-19. Ebola Screen: Patient denies travel to an Ebola-affected area in the 21 days before illness onset. Initial Sepsis Screen: Does the patient meet any 2 criteria? No. Patient's initial sepsis screen is negative. Does the patient have a suspected source of infection? No. Patient's initial sepsis screen is negative. Risk Assessment: Do you want to hurt yourself or someone else? Patient reports no desire to harm self or others. Onset of symptoms was December 23, 2021. 13:37 Method Of Arrival: Ambulatory tw2 13:37 Acuity: ALFRED 3 tw2 Triage Assessment: 13:44 General: Appears in no apparent distress. Behavior is calm, cooperative, appropriate tw2 for age. Pain: Complains of pain in back. Neuro: Level of Consciousness is awake, alert, obeys commands, Oriented to person, place, time, situation. GI: Reports bloating. Historical: - Allergies: 13:42 No Known Allergies; tw2 - Home Meds: 13:42 furosemide 20 mg Oral tab 1 tab once daily [Active]; losartan 100 mg Oral tab 1 tab tw2 once daily [Active]; - PMHx: 13:42 Anemia; CHF; Hypertension; tw2 - PSHx: 13:42 hysterectomy; tw2 - Immunization history:: Client reports receiving the 2nd dose of the Covid vaccine. - Social history:: Smoking status: Patient denies any tobacco usage or history of. Patient uses alcohol, occasionally. once or twice a week, per pts daughter hx of heavy drink 30 years ago. Screenin:53 Abuse screen: Denies threats or abuse. Nutritional screening: No deficits noted. tw2 Tuberculosis screening: No symptoms or risk factors identified. Fall Risk Secondary diagnosis (15 points) impaired mobility. Assessment: 14:27 Reassessment: Daughter reports Hgb was 8.9 Wednesday morning and 8.2 Wednesday evening. jl7 16:00 Reassessment: No changes from previously documented assessment. Patient and/or family jg9 updated on plan of care and expected duration. Pain level reassessed. Patient is alert, oriented x 3, equal unlabored respirations, skin warm/dry/pink. Vital Signs: 13:37 BP 127 / 47; Pulse 92; Resp 17; Temp 98.1(O); Pulse Ox 97% on R/A; Weight 81.19 kg (R); tw2 Height 5 ft. 4 in. (162.56 cm); 16:00 BP 124 / 53; Pulse 79; Resp 15 S; Pulse Ox 97% on R/A; Pain 8/10; jg9 13:37 Body Mass Index 30.72 (81.19 kg, 162.56 cm) tw2 13:37 "pressure all the time" tw2 ED Course: 13:32 Patient arrived in ED. rg4 13:33 Trenton Nathan MD is Private Physician. rg4 13:37 Arm band placed on. tw2 13:42 Triage completed. tw2 13:46 Bed in low position. Call light in reach. Adult w/ patient. tw2 13:47 Quirino Epperson DO is Attending Physician. ms3 13:49 Ino Adhikari, DINESH is Primary Nurse. jl7 14:10 EKG done, by ED staff, reviewed by Quirino Epperson DO. jl7 14:13 SARS RAPID Sent. ms3 14:26 Initial lab(s) drawn, by ED staff, sent to lab. Inserted saline lock: 20 gauge in left jl7 antecubital area, using aseptic technique. Blood collected. inserted by KJ. 14:57 XRAY Chest (1 view) In Process Unspecified. EDMS 15:04 CT Abd/Pelvis - IV Contrast Only In Process Unspecified. EDMS 15:41 Trenton Nathan MD is Hospitalizing Provider. ms3 19:07 No provider procedures requiring assistance completed. Patient admitted, IV remains in jl7 place. intact, No redness/swelling at site. Administered Medications: 16:35 Drug: morphine 2 mg Route: IVP; Infused Over: 2 mins; Site: left antecubital; jg9 16:36 Drug: Zofran (Ondansetron) 4 mg Route: IVP; Site: left antecubital; jg9 16:36 CANCELLED (Duplicate Order): Zofran (Ondansetron) 4 mg IVP once; over 2 minutes jg9 Medication: 19:07 VIS not applicable for this client. jl7 Outcome: 15:42 Decision to Hospitalize by Provider. ms3 19:07 Admitted to ER Hold. Please see [facility] for further documentation. jl7 19:07 Condition: stable 19:07 Discharge instructions given to patient, family, Instructed on the need for admit, Demonstrated understanding of instructions. 12/24 12:55 Patient left the ED. tw2 Signatures: Dispatcher [employer] EDMS Aydee Waddell, RN RN tw2 Melina Oro rg4 Ino Adhikari RN RN jl7 Quirino Epperson DO DO ms3 Astrid Wang, RN RN jg9
--- NOTE | 2021-12-23 15:43 | EDPHYS ---
Physician Documentation [facility] Name: Claudia Thomas Age: 86 yrs Sex: Female : 1935 Arrival Date: 12/23/2021 Time: 13:32 Bed 7 Private MD: Trenton Nathan V ED Physician Quirino Epperson HPI: 12/23 15:28 This 86 yrs old Female presents to ER via Ambulatory with complaints of Abdominal Pain, ms3 Back Pain, Weakness. 15:28 86-year-old female with past medical history of anemia, congestive heart failure, ms3 hypertension presents for lower abdominal pain that she rates a /. Patient states she was seen in the [place] ER and the [facility] ER for similar symptoms. Patient saw Dr. Boo yesterday. Patient's daughter states they called Dr. Boo's office and were referred to the emergency department. Patient states her pain has become worse since it originally started on Wednesday. Patient denies bloody or black stools, nausea, vomiting, diarrhea, fevers, chills. Patient states her primary care physician is Dr. Nathan. Historical: - Allergies: 13:42 No Known Allergies; tw2 - Home Meds: 13:42 furosemide 20 mg Oral tab 1 tab once daily [Active]; losartan 100 mg Oral tab 1 tab tw2 once daily [Active]; - PMHx: 13:42 Anemia; CHF; Hypertension; tw2 - PSHx: 13:42 hysterectomy; tw2 - Immunization history:: Client reports receiving the 2nd dose of the Covid vaccine. - Social history:: Smoking status: Patient denies any tobacco usage or history of. Patient uses alcohol, occasionally. once or twice a week, per pts daughter hx of heavy drink 30 years ago. ROS: 15:30 Constitutional: Negative for fever, and chills. Neck: Negative for injury, pain, and ms3 swelling, Cardiovascular: Negative for chest pain, and palpitations. Respiratory: Negative for shortness of breath, cough, wheezing, and pleuritic chest pain. 15:30 Skin: Negative for injury, rash, and discoloration. 15:30 Abdomen/GI: Positive for abdominal pain, Negative for nausea, vomiting, and diarrhea. 15:30 All other systems are negative. Exam: 14:08 ECG was reviewed by the Attending Physician. ms3 15:30 Constitutional: This is a well developed, well nourished patient who is awake, alert, ms3 and in no acute distress. Neck: Trachea midline, no cervical lymphadenopathy. Supple, full range of motion without nuchal rigidity, or vertebral point tenderness. No Meningismus. Chest/axilla: Normal chest wall appearance and motion. Nontender with no deformity. Cardiovascular: Regular rate and rhythm with a normal S1 and S2. No gallops, murmurs, or rubs. Normal PMI, no JVD. No pulse deficits. Respiratory: Lungs have equal breath sounds bilaterally, clear to auscultation and percussion. No rales, rhonchi or wheezes noted. No increased work of breathing, no retractions or nasal flaring. 15:30 Skin: Warm, dry with normal turgor. Normal color with no rashes, no lesions, and no evidence of cellulitis. MS/ Extremity: Pulses equal, no cyanosis. Neurovascular intact. Full, normal range of motion. Psych: Awake, alert, with orientation to person, place and time. Behavior, mood, and affect are within normal limits. 15:30 Abdomen/GI: Inspection: abdomen appears normal, Bowel sounds: normal, Palpation: moderate abdominal tenderness, in the right lower quadrant and left lower quadrant. Vital Signs: 13:37 BP 127 / 47; Pulse 92; Resp 17; Temp 98.1(O); Pulse Ox 97% on R/A; Weight 81.19 kg (R); tw2 Height 5 ft. 4 in. (162.56 cm); 16:00 BP 124 / 53; Pulse 79; Resp 15 S; Pulse Ox 97% on R/A; Pain 8/10; jg9 13:37 Body Mass Index 30.72 (81.19 kg, 162.56 cm) tw2 13:37 "pressure all the time" tw2 MDM: 14:00 Patient medically screened. ms3 15:30 Differential diagnosis: Diverticulitis vs abdominal pain vs anemia. ms3 15:37 Physician consultation: Remy Boo MD was called at 15:37, regarding consult, and ms3 will see patient Will preform colonoscopy tomorrow. Would like prep started.. 15:46 Data reviewed: vital signs, nurses notes, lab test result(s), radiologic studies, and ms3 as a result, I will admit patient. Data interpreted: residential monitor: rate is 77 beats/min, rhythm is normal sinus rhythm, regular, with no ectopy, Interpretation: normal rate, normal rhythm. Counseling: I had a detailed discussion with the patient and/or guardian regarding: the historical points, exam findings, and any diagnostic results supporting the discharge/admit diagnosis, lab results, radiology results, the need for further work-up and treatment in the hospital. ED course: Discussed case with Dr Nathan. He accepts patient as observation and is aware of colonoscopy prep and Dr Boo's plan for colonoscopy tomorrow.. 15:56 ED course: RN to call Dr Boo for colonic prep.. ms3 12/23 14:01 Order name: CBC with Diff; Complete Time: 15:20 ms3 12/23 14:01 Order name: NT PRO-BNP; Complete Time: 15:20 ms3 12/23 14:01 Order name: Troponin HS; Complete Time: 15:20 ms3 12/23 14:01 Order name: CMP; Complete Time: 15:20 ms3 12/23 14:01 Order name: Lipase; Complete Time: 15:20 ms3 12/23 14:12 Order name: SARS RAPID; Complete Time: 15:20 ms3 12/23 14:01 Order name: XRAY Chest (1 view); Complete Time: 15:20 ms3 12/23 14:01 Order name: CT Abd/Pelvis - IV Contrast Only; Complete Time: 15:32 ms3 12/23 14:13 Order name: Type And Screen ms3 12/23 20:47 Order name: ABO/RH no charge; Complete Time: 03:10 EDMS 12/24 05:18 Order name: CBC with Automated Diff EDMS 12/24 05:29 Order name: Basic Metabolic Panel EDMS 12/24 05:29 Order name: Liver (Hepatic) Function EDMS 12/24 09:02 Order name: CBC Smear Scan EDMS 12/23 14:01 Order name: EKG; Complete Time: 14:02 ms3 12/23 14:01 Order name: Cardiac monitoring; Complete Time: 14:26 ms3 12/23 14:01 Order name: EKG - Nurse/Tech; Complete Time: 14:12 ms3 12/23 14:01 Order name: IV Saline Lock; Complete Time: 14:26 ms3 12/23 14:01 Order name: Labs collected and sent; Complete Time: 14: ms3 12/23 14:01 Order name: O2 Per Protocol; Complete Time: 14: ms3 12/23 14:01 Order name: O2 Sat Monitoring; Complete Time: 14: ms3 12/23 14:01 Order name: IV Saline Lock; Complete Time: 14:28 ms3 EC:08 Rate is 88 beats/min. Rhythm is regular. QRS [place] is Normal. AR interval is normal. ms3 Clinical impression: NSR w/ Non-specific ST/T Changes. Interpreted by me. Reviewed by me. Administered Medications: 16:35 Drug: morphine 2 mg Route: IVP; Infused Over: 2 mins; Site: left antecubital; jg9 16:36 Drug: Zofran (Ondansetron) 4 mg Route: IVP; Site: left antecubital; jg9 16:36 CANCELLED (Duplicate Order): Zofran (Ondansetron) 4 mg IVP once; over 2 minutes jg9 Disposition Summary: 12/23/21 15:42 Hospitalization Ordered Hospitalization Status: Observation ms3 Provider: Trenton Nathan ms3 Condition: Stable ms3 Problem: new ms3 Symptoms: are unchanged ms3 Bed/Room Type: Standard ms3 Location: [facility] ER HOLD(12/23/21 15:49) kc6 Room Assignment: ERHOLD-(12/23/21 15:49) kc6 Diagnosis - Lower abdominal pain, unspecified ms3 - Anemia, unspecified ms3 - Shortness of breath ms3 Forms: - Medication Reconciliation Form ms3 - SBAR form ms3 Signatures: Dispatcher [employer] EDMS Aydee Waddell RN RN tw2 Ino Adhikari RN RN jl7 Quirino Epperson DO DO ms3 Astrid Wang RN RN jg9 Kayla Gutierrez PA PA jamie3 Mraia Elena Meneses kc6 Corrections: (The following items were deleted from the chart) 15:30 15:28 86-year-old female with past medical history of anemia, congestive heart failure, ms3 hypertension presents for lower abdominal pain that she rates a 7/10. Patient states she was seen in the [place] ER and the [facility] ER for similar symptoms. Patient saw Dr. Boo yesterday. Patient's daughter states they called Dr. Boo's office and were referred to the emergency department. Patient states her pain has become worse since it originally started. ms3 15:49 15:37 Physician consultation: Remy Boo MD was called at 15:37, regarding consult, ms3 ms3 15:49 15:42 Telemetry/MedSurg (observation) ms3 kc6 15:49 15:42 ms3 kc6 16:36 16:36 Zofran (Ondansetron) 4 mg IVP once; over 2 minutes ordered. jg9 jg9
[2021-12-23] MEDS ORDERED: ONDANSETRON 4 MG/2 ML VIAL IV PRN (15:54)
[2021-12-23] MEDS ORDERED: ACETAMINOPHEN 500 MG TAB PO PRN (15:54)
[2021-12-23] MEDS ORDERED: D5 0.45 NS 1,000 ML IV SCH (16:00)
[2021-12-23] MEDS ORDERED: MORPHINE 2 MG/ML SYR ONE (16:04)
[2021-12-23] MEDS ORDERED: METOCLOPRAMIDE 10 MG/2mL INJ ONE (16:57)
[2021-12-23] MEDS ORDERED: D5 0.45 NS 1,000 ML IV ONE (16:58)
[2021-12-23] MEDS ORDERED: METOCLOPRAMIDE 10 MG/2mL INJ IV SCH ×2 (17:00→23:00)
[2021-12-23] MEDS ORDERED: MAGNESIUM CITRATE 300 ML BOT PO SCH (17:30)
[2021-12-23] MEDS ORDERED: GOLYTELY 4000 ML PO SCH ×2 (18:00→22:00)
[2021-12-23] MEDS: D5 0.45 NS 1,000 ML IV SCH (20:24)
[2021-12-23] MEDS ORDERED: NA CHLORIDE 0.9% 1,000 ML ONE (23:16)
[2021-12-24] MEDS ORDERED: METOCLOPRAMIDE 10 MG/2mL INJ ONE (01:22)
[2021-12-24] MEDS ORDERED: NA CHLORIDE 0.9% 50 ML ONE (01:23)
[2021-12-24 05:17] LABS: Absolute Lymphocytes (CBC) 1.2 K/uL (0.7-4.9); Hematocrit 29.9 % (36.0-45.0); Lymphocytes % 24.9 % (15.3-44.8); MCV 103.3 fL (80-100); MPV 7.6 fL (7.6-11.3)
[2021-12-24 05:26] LABS: Albumin 3.4 g/dL (3.4-5.0); Bilirubin Direct 0.4 mg/dL (0-0.2); Bilirubin Total 1.4 mg/dL (0.2-1.0); Potassium 3.8 mmol/L (3.5-5.1); Protein, Total 5.9 g/dL (6.4-8.2)
[2021-12-24] MEDS ORDERED: D5 0.45 NS 1,000 ML IV ONE (05:30)
[2021-12-24] MEDS ORDERED: PNEUMOCOCCAL VACCINE 0.5 ML IMVAC ONE ×2 (07:00→08:11)
[2021-12-24] MEDS ORDERED: LOSARTAN POTASSIUM 50 MG TABLET ONE (08:11)
[2021-12-24] MEDS: LOSARTAN POTASSIUM 50 MG TABLET PO SCH (08:15)
[2021-12-24 09:01] LABS: Anisocytosis 1+; Blood Morphology Comment NOTED (NOT SEEN); Macrocytosis 1+; Platelet Estimate ADEQ; White Blood Cell Scan OK (OK)
[2021-12-24] MEDS ORDERED: Ringers Lactate 1,000 ML IV ONE (13:08)
[2021-12-24] MEDS ORDERED: propofoL 200 MG/20 ML VIAL IV ONE (15:21)
[2021-12-24] MEDS ORDERED: LIDOCAINE 1% MPF 5 ML VIAL ONE (15:21)
--- NOTE | 2021-12-24 15:45 | ENDO RPT ---
[address], [address] EGD PROCEDURE REPORT EXAM DATE: 12/24/2021 PATIENT NAME: Claudia Thomas MR#: [id number] BIRTHDATE: 1935 ATTENDING: Remy Boo Dr STATUS: inpatient - [facility] CATEGORY SPECIALIST: Maria Elena Jeffrey RN and Anna Thomas CST INDICATIONS: The patient is a 86 yr old Female here for an EGD due to iron deficiency anemia PROCEDURE PERFORMED: EGD with biopsy MEDICATIONS: Per Anesthesia. TOPICAL ANESTHETIC: none CONSENT: The patient understands the risks and benefits of the procedure and understands that these risks include, but are not limited to: sedation, allergic reaction, infection, perforation and/or bleeding. Alternative means of evaluation and treatment include, among others: physical exam, x-rays, and/or surgical intervention. The patient elects to proceed with this endoscopic procedure. DESCRIPTION OF PROCEDURE: During intra-op preparation period all mechanical medical equipment was checked for proper function. Hand hygiene and appropriate measures for infection prevention was taken. Procedure, possible complications, and alternatives including but not limited to the possibility of bleeding, perforation, tear, infection, sepsis, need for surgery, need for blood transfusion, and anesthesia related complications were explained to the patient. After the risks, benefits and alternatives of the procedure were thoroughly explained, Informed consent was verified, confirmed and timeout was successfully executed by the treatment team. The patient was placed in the left lateral position. The patient was anesthetized with topical anesthesia. Through the anesthetized oropharyngeal area, the scope was passed without any difficulty. The EG-[id number] ([id number]) endoscope was introduced through the mouth and advanced to the third portion of the duodenum. Retroflexed views revealed a small hiatal hernia. The gastroscope was then slowly withdrawn and removed. A small hiatal hernia was found Mild gastritis was found in the antrum. Multiple biopsies were obtained and sent to pathology. Small bowel biopsies obtained with history of iron deficiency anemia. ADVERSE EVENTS: There were no complications. IMPRESSIONS: 1. Small hiatal hernia 2. Mild gastritis in the antrum, s/p biopsies 3. Small bowel biopsies obtained with history of iron deficiency anemia RECOMMENDATIONS: 1. await biopsy results 2. acid suppression therapy REPEAT EXAM: Remy Boo Dr eSigned: Remy Boo Dr 12/24/2021 3:45 PM cc: Trenton Nathan CPT CODES: ICD9 CODES: PATIENT NAME: Claudia Thomas MR#: [id number]
--- NOTE | 2021-12-24 16:14 | ENDO RPT ---
[address], [address] COLONOSCOPY PROCEDURE REPORT EXAM DATE: 12/24/2021 PATIENT NAME: Claudia Thomas MR #: [id number] BIRTHDATE: 1935 ATTENDING: Remy Boo Dr STATUS: inpatient - 7 INSIDE SALES EXECUTIVE: Maria Elena Jeffrey RN and Anna Thomas CST INDICATIONS: The patient is a 86 yr old Female here for a colonoscopy due to iron deficiency anemia and abnormal CT of abdomen PROCEDURE PERFORMED: Colonoscopy with biopsy MEDICATIONS: Per Anesthesia. ESTIMATED BLOOD LOSS: None CONSENT: The patient understands the risks and benefits of the procedure and understands that these risks include, but are not limited to: sedation, allergic reaction, infection, perforation and/or bleeding. Alternative means of evaluation and treatment include, among others: physical exam, x-rays, and/or surgical intervention. The patient elects to proceed with this endoscopic procedure. DESCRIPTION OF PROCEDURE: During intra-op preparation period all mechanical medical equipment was checked for proper function. Hand hygiene and appropriate measures for infection prevention was taken. Procedure, possible complications, alternatives including, but not limited to possibility of bleeding, perforation, tear, infection, sepsis, need for surgery, need for blood transfusion, were explained to the patient. After the risks, benefits and alternatives of the procedure were thoroughly explained, Informed consent was verified, confirmed and timeout was successfully executed by the treatment team. The patient was placed in the left lateral position. A digital rectal exam was performed and revealed external hemorrhoids. After appropriate level of anesthesia, the scope was passed. The EG-[id number] ([id number]) and [id number] ([id number]) endoscope was introduced through the anus and advanced to the cecum. The quality of the prep was fair. The instrument was then slowly withdrawn as the colon was fully examined. Scope withdrawal time was 10 minutes. COLON FINDINGS: A half circumferential firm, fungating and ulcerated 5 cm mass with friable surfaces was found in the distal transverse colon. Mild diverticulosis was noted in the sigmoid colon. No bleeding was noted from the diverticulosis. Moderate sized internal hemorrhoids were found. Retroflexed views revealed medium hemorrhoids. The scope was then completely withdrawn from the patient and the procedure terminated. ADVERSE EVENTS: There were no complications. IMPRESSIONS: 1. Half circumferential 5 cm mass in the distal transverse colon 2. Mild diverticulosis in the sigmoid colon 3. Moderate sized internal hemorrhoids 4. Intubation to cecum RECOMMENDATIONS: 1. await biopsy results 2. avoid NSAIDS for 2 weeks 3. surgery consult RECALL: Return in 1 year(s) for Colonoscopy. Remy Boo Dr eSigned: Remy Boo Dr 12/24/2021 4:14 PM cc: Trenton Nathan CPT CODES: ICD9 CODES: 1. 455.5 External hemorrhoids with other complication 2. 239.0 Neoplasm of unspecified nature of digestive system PATIENT NAME: Claudia Thomas Aranza MR#: [id number]
[2021-12-24 16:36] VITALS: O2SAT 100
[2021-12-24 18:05] VITALS: BMI 30.7
--- NOTE | 2021-12-24 18:14 | P.HP ---
Certification for Inpatient Patient admitted to: Inpatient With expected LOS: >2 Midnights Practitioner: I am a practitioner with admitting privileges, knowledge of patient current condition, hospital course, and medical plan of care. 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 SHE COMES IN WITH ABDOMEN PAIN AND DYSPNEA. SHE ON CT HAS COLON MASS AND ANEMIA OF 8 G. I GAVE HER TWO UNITS OF BLOOD AT NIGHT AND CALLED DR. VIRGEN TO DO COLONOSCOPY. SHE FELT GREAT THIS AM AFTER BLOOD. DR. VIRGEN DID COLONOSCOPY AND FOUND HER TO HAVE ASCENDING COLON CANCER. I CALLED DR. BUSCH TO TAKE CARE OF PARTIAL COLECTOMY. Allergies No Known Allergies Allergy (Verified 01/04/20 12:42) Home medications list reviewed: Yes Home Medications: Furosemide 20 mg PO DAILY 12/23/21 Losartan Potassium 100 mg PO DAILY 12/23/21 - Past Medical/Surgical History Has patient received pneumonia vaccine in the past: No Diabetic: No -: Bladder infection -: HTN -: CHF - Family History Mother -: Heart disease Father -: Heart disease - Social History Smoking Status: Never smoker Alcohol use: No CD- Drugs: No Caffeine use: No Place of Residence: Home Review of Systems 10-point ROS is otherwise unremarkable General: Weakness Physical Examination - Vital Signs Temperature: 97.8 F Blood Pressure: 136/56 Pulse: 75 Respirations: 18 Pulse Ox (%): 97 - Physical Exam General: Oriented x3, Acute distress, Mild distress HEENT: Atraumatic, PERRLA, Mucous membr. moist/pink, EOMI, Sclerae nonicteric Neck: Supple, 2+ carotid pulse no bruit, No LAD, Without JVD or thyroid abnormality Respiratory: Clear to auscultation bilaterally, Normal air movement Cardiovascular: Regular rate/rhythm, Normal S1 S2 Gastrointestinal: Normal bowel sounds, No tenderness Musculoskeletal: No tenderness Integumentary: No rashes Neurological: Normal gait, Normal speech, Normal strength at 5/5 x4 extr, Normal tone, Normal affect Lymphatics: No axilla or inguinal lymphadenopathy Assessment and Plan - Problems (Diagnosis) (1) Severe anemia Current Visit: Yes Status: Acute Plan: BLOOD TRANSFUSION. REASON IS TWO FACTOR. ONE MDS AND ONE COLON CANCER. SURGERY IN AM OR SO. (2) Colon cancer, ascending Current Visit: Yes Status: Acute Plan: I CALLED DR. BUSCH TO TAKE CARE OF SURGERY. DAUGHTER IS AWARE. SHE HAS HISTORY OF CHF BUT VERY STABLE AT THIS POINT WITH NO NOTABLE CORONARY DISEASE SHE CARRIES MODERATE RISK FOR SURGERY SEC. TO AGE. - Advance Directives Does patient have a Living Will: Yes Does patient have a Durable POA for Healthcare: Yes
[2021-12-25] MEDS: D5 0.45 NS 1,000 ML IV SCH (03:41)
[2021-12-25] MEDS: LOSARTAN POTASSIUM 50 MG TABLET PO SCH (08:08)
--- NOTE | 2021-12-25 14:01 | EKG ---
Test Date: 2021-12-23 Test Time: 14:08:15 Embroidery Supervisor: INGRID MEASUREMENT RESULTS: Intervals: Rate: 88 ME: 176 QRSD: 82 QT: 392 QTc: 474 [place]: P: 58 ME: 176 QRS: 22 T: 66 INTERPRETIVE STATEMENTS: Normal sinus rhythm Cannot rule out Anterior infarct, age undetermined Abnormal ECG Compared to ECG 12/21/2021 21:28:53 Myocardial infarct finding now present Prolonged QT interval no longer present Electronically Signed On 12-25-21 14:00:12 CDT by Jcarlos Zurita
--- NOTE | 2021-12-25 18:41 | CON ---
Date of Consultation: 12/25/2021 Reason For Consultation: Cardiac preoperative risk assessment. History Of Present Illness: This is an 86-year-old female with history of CHF, hypertension, has lar ge colon mass and there was a plan for colon resection. The patient went through a biopsy recently a nd I was asked to evaluate the patient for cardiac risk assessment preoperatively. The patient decli manjit having any history of coronary artery disease. Denies having any chest pain. She follows with a honing machine operator tool in [place] on a regular basis and no intervention was done on her heart in the past, a nd she has no limiting shortness of breath or chest pain, but she is not very active, is 86 years old . Past Medical History: As outlined above in the HPI. Medications: Refer to reconciliation sheet for detailed list. Allergies: NO KNOWN DRUG ALLERGIES. Family History: No premature coronary artery disease or cancer. Social History: Does not smoke or drink or use any drugs. Review of Systems: All systems reviewed and they were negative except for what mentioned in HPI. Physical Examination: Vital Signs: Reviewed. Head and Neck: Pupils are equal, reactive to light. Intact eye movements. No JVD. No cervical lym phadenopathy. Neck is supple. Thyroid is not enlarged. Lungs: Clear to auscultation bilaterally. No rhonchi, wheezing, or crackles. No accessory muscle u se. Heart: Regular rate and rhythm. No extra sounds. Abdomen: Soft, nontender. Bowel sounds positive. No organomegaly. No masses or hernia. No rigidi ty or rebound. Extremities: No edema, clubbing, or cyanosis. Intact pulses. Skin: No rash. Neurologic: Alert, awake, oriented x3. No acute focal deficits appreciated. Investigations: Creatinine is 0.69. Troponin is 7. BNP is 518 and hemoglobin is 10.5. Assessment And Recommendations: 1.Cardiac preoperative evaluation for colon surgery for colon cancer. The patient is a poor histori an, so I could not get a good history from her; however, due to her age and which makes her high risk , I would recommend a Lexiscan nuclear stress test to be done early in the morning along with echocar diogram. If both are okay, then we can proceed for the surgery in the same day. Orders for the echo and stress test were placed. 2.Hypertension. Her blood pressure is controlled. SR/MODL Voice ID: [id number] Report ID: [id number]
--- NOTE | 2021-12-25 21:25 | P.PN ---
Subjective Date of Service: 12/25/21 Chief Complaint: WEAKNESS, FATIGUE, ABDOMEN PAIN Subjective: Improving SHE IS STABLE. HAS NO CHEST PAIN OR DYSPNEA Physical Examination - Vital Signs Temperature: 98.2 F Blood Pressure: 117/58 Pulse: 77 Respirations: 12 Pulse Ox (%): 95 - Physical Exam General: In no apparent distress HEENT: Atraumatic, PERRLA, EOMI Neck: Supple, JVD not distended Respiratory: Clear to auscultation bilaterally, Normal air movement Cardiovascular: Regular rate/rhythm, Normal S1 S2 Gastrointestinal: Normal bowel sounds, No tenderness Musculoskeletal: No tenderness Integumentary: No rashes Neurological: Normal speech, Normal tone, Normal affect Lymphatics: No axilla or inguinal lymphadenopathy - Studies Medications List Reviewed: Yes Assessment And Plan - Current Problems (Diagnosis) (1) Severe anemia Current Visit: Yes Status: Acute Plan: BLOOD TRANSFUSION. REASON IS TWO FACTOR. ONE MDS AND ONE COLON CANCER. SURGERY IN AM OR SO. (2) Colon cancer, ascending Current Visit: Yes Status: Acute Plan: I CALLED DR. BUSCH TO TAKE CARE OF SURGERY. DAUGHTER IS AWARE. SHE HAS HISTORY OF CHF BUT VERY STABLE AT THIS POINT WITH NO NOTABLE CORONARY DISEASE SHE CARRIES MODERATE RISK FOR SURGERY SEC. TO AGE. SHE HAS STABLE CONTROLLED DIASTOLIC HEART FAILURE BY HISTORY. ST TEST IN AM.
[2021-12-26] MEDS: LOSARTAN POTASSIUM 50 MG TABLET PO SCH (07:41)
[2021-12-26] MEDS ORDERED: REGADENOSON 0.4 MG/5 ML SYR IV ONE (07:44)
[2021-12-26 09:15] VITALS: BP 127/59; TEMP 97.6
--- NOTE | 2021-12-26 09:16 | RAD REPORT ---
EXAM DESCRIPTION: NM - Rest Stress Cardiac Imaging - 12/26/2021 9:06 am CLINICAL HISTORY: Cardiac clearance TECHNIQUE: The patient was administered 10.6 mCi of Tc 99m Sestamibi prior to resting SPECT imaging of the heart. The patient was then administered 31.5 mCi of Tc 99m Sestamibi following exercise or ph armacologic stress. Multiplanar SPECT images were reviewed. FINDINGS: There is uniformity of radiotracer uptake involving the entire left ventricular myocardiu m on rest and stress images. The left ventricular ejection fraction equals 70% IMPRESSION: Negative for a myocardial perfusion defect
--- NOTE | 2021-12-26 14:02 | TREADPHA ---
DX: CARDIAC CLEARANCE Date of Study: 12/26/2021 Ht: 5' 4 " Wt: 179 lb 0 oz Consulting Physician: MARLEN MEDICATIONS: LOUIE HERNANDEZ HISTORY: 86 YEAR OLD FEMALE WITH COMPLAINTS OF CHEST PAIN. HISTORY OF HEART DISEASSE, HYPERTENSION, NON SMOKER, NON DRINKER. PHYSICIAL EXAMINATION: RESTING B.P.: 132/49 RESTING H.R.: 82 RESTING EKG: NORMAL SINUS RHYTHM, RIGHT BUNDLE BRANCH BLOCK. PROTOCOL: LEXISCAN EXERCISE TIME: 3:30 B.P. AT PEAK STRESS: 148/52 IMPRESSION: LEXISCAN INJECTED, FOLLOWED BY CARDIOLITE PER PROTOCOL. SEE NUCLEAR MEDICINE REPORT. NO SUPRAVENTRICULAR OR VENTRICULAR TACHYCARDIA. NO PREMATURE VENTRICULAR COMPLEXES. NO PREMATURE ATRIAL COMPLEXES. PATIENT REPORTS NO CHEST PAIN. NO EKG CHANGES OF ISCHEMIA WITH LEXISCAN.
--- NOTE | 2021-12-26 14:26 | ECHO ---
HEIGHT: 5 ft 4 in WEIGHT: 179 lb 0 oz DATE OF STUDY: 12/26/[address]: Trenton Nathan MD 2-DIMENSIONAL: YES M.MODE: YES DOPPLER: YES COLOR FLOW: YES TDS: NO PORTABLE: YES DEFINITY: NO BUBBLE STUDY: NO DIAGNOSIS: CARDIAC CLEARANCE CARDIAC HISTORY: CATHERIZATION: NO SURGERY: NO PROSTHETIC VALVE: NO PACEMAKER: NO MEASUREMENTS (cm) DIASTOLIC (NORMALS) SYSTOLIC (NORMALS) IVSd 1.1 (0.6-1.2) LA Diam 3.3 (1.9-4.0) LVEF 55-60% LVIDd 4.0 (3.5-5.7) LVIDs 3.0 (2.0-3.5) %FS 25% LVPWd 1.0 (0.6-1.2) Ao Diam 2.3 (2.0-3.7) 2 DIMENSIONAL ASSESSMENT: RIGHT ATRIUM: ENLARGED LEFT ATRIUM: NORMAL RIGHT VENTRICLE: NORMAL LEFT VENTRICLE: NORMAL TRICUSPID VALVE: MITRAL VALVE: PULMONIC VALVE: AORTIC VALVE: PERICARDIAL EFFUSION: NONE AORTIC ROOT: NORMAL LEFT VENTRICULAR WALL MOTION: NORMAL DOPPLER/COLOR FLOW: SEE BELOW COMMENTS: NORMAL LEFT VENTRICULAR EJECTION FRACTION 55-60%. NORMAL WALL MOTION. SEVERE TRICUSPID REGURGITATION. MILD PULMONARY AND AORTIC REGURGITATION. MODERATE MITRAL REGURGITATION. RIGHT VENTRICULAR SYSTOLIC PRESSURE IS 45 mmHg + RIGHT ATRIAL PRESSURE. TECHNOLOGIST: Von ANSARI
== END 2021-12-26 11:25 | disposition home or self-care (01) | DRG 375 ==
LOC: ER 13:29 → ERHOLD 15:52 → 2ND-WC 12-24 14:31 → 4TH 12-24 16:14 → OBSVTOIN 12-24 18:01
PROVIDERS: ADMIT Internal Medicine; ATTEND Internal Medicine
PROC: 30233N1 Transfusion of Nonautologous Red Blood Cells into Peripheral Vein, Percutaneous Approach (ICD-10-PCS; 2021-12-23)
PROC: 0DBL8ZX Excision of Transverse Colon, Via Natural or Artificial Opening Endoscopic, Diagnostic (ICD-10-PCS; 2021-12-23)
PROC: 0DB78ZX Excision of Stomach, Pylorus, Via Natural or Artificial Opening Endoscopic, Diagnostic (ICD-10-PCS; principal; 2021-12-24 14:15)
DX: C18.2 Malignant neoplasm of ascending colon (principal); D62 Acute posthemorrhagic anemia; I50.32 Chronic diastolic (congestive) heart failure; I11.0 Hypertensive heart disease with heart failure; K29.70 Gastritis, unspecified, without bleeding; K44.9 Diaphragmatic hernia without obstruction or gangrene; K57.30 Diverticulosis of large intestine without perforation or abscess without bleeding; K64.8 Other hemorrhoids; D46.9 Myelodysplastic syndrome, unspecified; Z23 Encounter for immunization; Z79.899 Other long term (current) drug therapy; Z90.710 Acquired absence of both cervix and uterus; Z20.822 Contact with and (suspected) exposure to COVID-19
CPT/HCPCS: 36415; 36430; 71045; 74177; 78452; 80048; 80053; 80076; 83690; 83880; 84484; 85025; 86850; 86900; 86901; 87811; 88305; 88312; 90471; 90732; 93005; 93017; 93306; 96374; 96375; 99285; A9500; G0378; J2001; J2270; J2405; J2704; J2765; J2785; J7030; J7120; J7799; P9016; Q9967

== ENCOUNTER 2022-01-05 07:36 | Inpatient (IN) | payer OTHER, MEDICARE ==
[2022-01-02 09:45] LABS: Absolute Lymphocytes (CBC) 0.8 K/uL (0.7-4.9); Hematocrit 30.6 % (36.0-45.0); Lymphocytes % 21.4 % (15.3-44.8); MCV 102.4 fL (80-100); MPV 7.8 fL (7.6-11.3); RBC Red Blood Cell Count 2.99 M/uL (3.86-4.86)
[2022-01-02 10:17] LABS: SARS-CoV-2 Antigen Rapid Res Negative (Negative)
[2022-01-02 10:37] LABS: Potassium 4.2 mmol/L (3.5-5.1)
[2022-01-05] MEDS ORDERED: Ringers Lactate 1,000 ML IV ONE (08:00)
[2022-01-05] MEDS ORDERED: CEFAZOLIN SODIUM 1 GM/VIAL ONE (08:00)
[2022-01-05] MEDS ORDERED: FENTANYL CITR 100 MCG/2 ML ONE (08:36)
[2022-01-05] MEDS ORDERED: propofoL 200 MG/20 ML VIAL IV ONE (08:36)
[2022-01-05] MEDS ORDERED: ONDANSETRON 4 MG/2 ML VIAL ONE (08:37)
[2022-01-05] MEDS ORDERED: LIDOCAINE 2% MPF 5 ML VIAL ONE (08:37)
[2022-01-05] MEDS ORDERED: ROCURONIUM 50 MG/5 ML VIAL IV ONE (08:37)
[2022-01-05] MEDS ORDERED: MIDAZOLAM HCL 2 MG/2 ML INJ ONE (08:37)
[2022-01-05] MEDS ORDERED: Levofloxacin 750mg IV 750 MG/150 ML BAG IV ONE (08:41)
[2022-01-05] MEDS ORDERED: VECURONIUM 10 MG/VIAL IV ONE (10:16)
[2022-01-05] MEDS ORDERED: dexAMETHasone 10 MG/ML VIAL ONE (10:44)
[2022-01-05] MEDS ORDERED: BUPIVACAINE 0.25% PF 10 ML VIAL ONE (10:44)
[2022-01-05] MEDS ORDERED: Phenylephrine HCl 10 MG/ML 1 ML VIAL ONE (11:05)
[2022-01-05] MEDS ORDERED: SODIUM CHLORIDE 0.9% 10ML INJ IV PRN (11:43)
--- NOTE | 2022-01-05 11:43 | P.BOP ---
Preoperative diagnosis: colon cancer, heart disease Postoperative diagnosis: same Primary procedure: 1, Laparoscopic assisted Right hemicolectomy Secondary procedure: 2. Laparoscopic extensive lysis of adhesions Other procedure(s): 3. open repair of incisional ventral hernia Cash Management Officer: JUAN MIGUEL BURRELL (STRIPPER LATEX) Estimated blood loss: <100cc Specimen: Right colon Findings: proximal transverse colon mass Anesthesia: General Complications: None Drain(s): ANN drain Transferred to: Recovery Room Condition: Good
[2022-01-05] MEDS ORDERED: GLYCOPYRROLATE 0.2 MG/ML SYR ONE (12:30)
[2022-01-05] MEDS ORDERED: NEOSTIGMINE 1 MG/ML -10 ML VIAL ONE (12:31)
[2022-01-05] MEDS ORDERED: METOCLOPRAMIDE 10 MG/2mL INJ ONE (12:38)
[2022-01-05] MEDS ORDERED: MORPHINE 10 MG/ML VIAL ONE (12:51)
[2022-01-05] MEDS: ONDANSETRON 4 MG/2 ML VIAL IV PRN (13:26)
[2022-01-05] MEDS: HYDROMORPHONE HCL 1 MG/ML INJ IV PRN ×4 (13:28→22:50)
--- OUTSIDE RECORDS SUMMARY | 2022-01-05 13:58 | XMS REPORT | Continuity of Care Document ---
:[address] [facility] t Address [address] [place] [id number] Care Team Providers Name Role Phone YAS CEE Attending Clinician Unavailable Payers Payer Name Policy Type Policy Number Effective Date Expiration Date S tere MEDICARE PART A \T\ [id number] 1999 B 00:00:[address] [facility] [id number] 2015 MEDICARE SUPPLEMENT 00:00:00 Problems This patient has no known problems. Allergies, Adverse Reactions, Alerts Allergy Allergy Status Severity Reaction(s) Onset Inactive Treating Comm ents Source Name Type Date Date Clinician NO KNOWN Drug Active [facility] Medications This patient has no known medications. Procedures This patient has no known procedures. Encounters Start End Encounter Admission Attending Care Care Encounter Source Date/Time Date/Time Type Type Clinicians Facility Department ID 2020-06-23 2020-06-23 Outpatient Rosy CEE [facility] [id number] [facility] 08:55:00 08:55:00 YAS [facility] Results This patient has no known results.
--- NOTE | 2022-01-05 14:03 | RAD REPORT ---
EXAM DESCRIPTION: RAD - Abdomen 1 View (KUB) - 01/05/2022 1:29 pm CLINICAL HISTORY: Device placement nasogastric tube placement FINDINGS: The tip of a nasogastric tube lies within the mid gastric body
[2022-01-05] MEDS: NA CHLORIDE 0.9% 1,000 ML IV SCH ×2 (14:30→22:56)
[2022-01-05] MEDS: METRONIDAZOLE 500mg IVPB 500 MG/100 ML BAG IV SCH (17:03)
[2022-01-05 18:19] LABS: Absolute Lymphocytes (CBC) 0.1 K/uL (0.7-4.9); Hematocrit 24.7 % (36.0-45.0); Lymphocytes % 0.7 % (15.3-44.8); MCV 103.5 fL (80-100); MPV 7.9 fL (7.6-11.3); RBC Red Blood Cell Count 2.39 M/uL (3.86-4.86)
[2022-01-05] MEDS: CIPROFLOXACIN 400mg IV 400 MG/200 ML BAG IV SCH (20:16)
[2022-01-06] MEDS: METRONIDAZOLE 500mg IVPB 500 MG/100 ML BAG IV SCH ×3 (00:08→16:38)
[2022-01-06] MEDS: HYDROMORPHONE HCL 1 MG/ML INJ IV PRN ×4 (03:52→21:36)
[2022-01-06 05:19] LABS: Absolute Lymphocytes (CBC) 0.2 K/uL (0.7-4.9); Lymphocytes % 1.8 % (15.3-44.8); MCV 103.2 fL (80-100); RBC Red Blood Cell Count 2.13 M/uL (3.86-4.86)
[2022-01-06] MEDS: NA CHLORIDE 0.9% 1,000 ML IV SCH ×3 (08:00→23:35)
[2022-01-06] MEDS: CIPROFLOXACIN 400mg IV 400 MG/200 ML BAG IV SCH ×2 (09:22→21:37)
[2022-01-06] MEDS: PANTOPRAZOLE 40 MG INJ IVP SCH (09:22)
[2022-01-06] MEDS ORDERED: NA CHLORIDE 0.9% 250 ML ONE (09:58)
--- NOTE | 2022-01-06 12:31 | PN ---
Date of Progress Note: 01/06/2022 Diagnosis: Colon cancer, status post right hemicolectomy and ventral hernia repair. Subjective: Doing well. The patient is awake, alert, no distress. Objective: HEENT: Pupils are equal and reactive. Chest: Bilateral breath sounds. Abdomen: Soft and depressible. Intact surgical site. ANN drain is serosanguineous. Extremities: Good capillary refill. No calf tenderness. Laboratory Data: Blood work shows WBC count of 8.5, hemoglobin of 7.7, . Potassium is 4 a nd glucose is 171. Plan: We have consulted now for ambulation, incentive spirometry. Continue the bowel rest and NG tu be. Continue SCDs and follow up with Dr. Nathan for the medical management of the hospitalist that he has signed to it. Keep the patient n.p.o. She has chronic anemia and she has been treated for that for the last several months. That is actually how they discovered the colon cancer trying to exclud ing for anemia, so she has multiple transfusions in the past. We are right now at 7.7. We expect th at to be a little lower after the surgical intervention and hydration, so we are going to give her bl ood transfusion today and repeat that tomorrow to see if she needs to be optimized again. BIJAL/RHIANNA Voice ID: [id number] Report ID: [id number]
--- NOTE | 2022-01-06 14:55 | P.CNS ---
Date of Consult: 01/06/22 Reason for Consult: Medical management Requesting Physician: Kush Young Chief Complaint: Colon cancer History of Present Illness: Patient is a 86-year-old female who has been recently found to have a colon mass. She underwent laparoscopic right hemicolectomy with general surgery. She is being given blood transfusion today for hemoglobin of 7.7. Medicine was consulted for medical management. She was hemodynamically stable during our encounter this afternoon. She had no complaints. She currently has a ANN bag to her right hemiabdomen. Her pain is controlled. She is still in the unit. Allergies No Known Allergies Allergy (Verified 01/05/22 08:10) Home Medications: Furosemide 20 mg PO DAILY 12/23/21 Losartan Potassium 100 mg PO DAILY 12/23/21 - Past Medical/Surgical History Diabetic: No -: MDS -: CHF -: Bladder Infection -: Per daughter-pt has early stage dementia -: Hysterectomy - Family History Mother Medical History: Heart disease Father Medical History: Heart disease - Social History Alcohol use: Yes CD- Drugs: No Caffeine use: Yes Place of Residence: Home Physical Examination Temp Pulse Resp BP Pulse Ox 98.3 F 86 20 119/42 L 99 01/06/22 12:00 01/06/22 12:00 01/06/22 13:30 01/06/22 12:00 01/06/22 13:30 General: In no apparent distress, Cooperative, Obese, Other (Hard of hearing) HEENT: Atraumatic, Normocephalic Neck: Supple Respiratory: Clear to auscultation bilaterally, Normal air movement Cardiovascular: No edema, Normal pulses, Regular rate/rhythm, Normal S1 S2 Gastrointestinal: Non-distended, Other (Diminished bowel sounds. Right hemiabdomen with ANN drain) Musculoskeletal: No clubbing, No swelling, No contractures, No erythema Neurological: Normal speech, Sensation intact Laboratory Data (last 24 hrs) 01/06/22 04:37: Sodium 142, Potassium 4.0, BUN 17, Creatinine 0.63, Glucose 171 H 01/06/22 04:37: WBC 8.50 D, Hgb 7.7 L, Hct 22.0 L, Plt Count 189 D 01/05/22 18:00: WBC 19.70 H D, Hgb 8.4 L, Hct 24.7 L D, Plt Count 239 - Problems (1) Colon cancer, ascending Current Visit: No Status: Acute Physician Review Additional Text: Assessment Patient is a 86-year-old female postop day #1 status post laparoscopic right hemicolectomy for an ascending colon mass. She tolerated the procedure well. She has been given blood transfusion postoperatively for hemoglobin of 7.7. Her estimated blood loss was less than 100. She is hemodynamically stable in the unit Colon mass Acute blood loss anemia Ventral hernia s/p repair Plan: Patient is currently n.p.o. for bowel rest Diet to be resumed as per general surgery Continue current management Encourage ambulation We will hold off chemoprophylaxis
[2022-01-06] MEDS ORDERED: DIPHENHYDRAMINE 50 MG/ML VIAL IV ONE (19:00)
[2022-01-07] MEDS: METRONIDAZOLE 500mg IVPB 500 MG/100 ML BAG IV SCH ×3 (00:17→16:32)
[2022-01-07] MEDS: HYDROMORPHONE HCL 1 MG/ML INJ IV PRN ×3 (00:17→15:17)
[2022-01-07] MEDS: NA CHLORIDE 0.9% 1,000 ML IV SCH ×3 (04:00→13:55)
[2022-01-07 05:08] LABS: Absolute Lymphocytes (CBC) 0.6 K/uL (0.7-4.9); Hematocrit 23.3 % (36.0-45.0); Lymphocytes % 7.2 % (15.3-44.8); MCV 99.5 fL (80-100); MPV 8.1 fL (7.6-11.3); RBC Red Blood Cell Count 2.34 M/uL (3.86-4.86)
[2022-01-07 05:20] LABS: Magnesium 1.9 mg/dL (1.8-2.4); Potassium 3.5 mmol/L (3.5-5.1)
[2022-01-07 06:20] VITALS: BMI 31.6
[2022-01-07 08:18] LABS: Anisocytosis 1+; Blood Morphology Comment NOTED (NOT SEEN); Platelet Estimate ADEQ; White Blood Cell Scan OK (OK)
[2022-01-07] MEDS: PANTOPRAZOLE 40 MG INJ IVP SCH (08:53)
[2022-01-07] MEDS: CIPROFLOXACIN 400mg IV 400 MG/200 ML BAG IV SCH ×2 (08:54→20:44)
--- NOTE | 2022-01-07 09:28 | P.PN ---
Subjective Date of Service: 01/07/22 Chief Complaint: Colon cancer Subjective: No new changes (Patient is having increased pharyngeal secretions, and cough. Scopolamine and mucinex ordered.) Physical Examination - Vital Signs Temperature: 97.7 F Blood Pressure: 162/61 Pulse: 88 Respirations: 23 Pulse Ox (%): 100 - Physical Exam General: Alert, In no apparent distress, Cooperative HEENT: Atraumatic, Normocephalic, Other (NG tube in place) Respiratory: Clear to auscultation bilaterally, Normal air movement Cardiovascular: Normal pulses, Regular rate/rhythm, Normal S1 S2 Gastrointestinal: Other (ANN drain in place, s/p ex-lap) Musculoskeletal: No clubbing, No swelling, No contractures Neurological: Normal speech, Sensation intact - Studies Laboratory Data (last 24 hrs) 01/07/22 04:44: Sodium 143, Potassium 3.5, BUN 13, Creatinine 0.56, Glucose 114 H, Magnesium 1.9 01/07/22 04:44: WBC 8.30, Hgb 8.1 L, Hct 23.3 L, Plt Count 174 Assessment And Plan - Current Problems (Diagnosis) (1) Colon cancer, ascending Current Visit: No Status: Acute Physician Review Additional Text: Assessment Patient is a 86-year-old female postop day #2 status post laparoscopic right hemicolectomy for an ascending colon mass. She tolerated the procedure well. She has been given blood transfusion postoperatively for hemoglobin of 7.7. Her estimated blood loss was less than 100. She is hemodynamically stable in the unit Colon mass Acute blood loss anemia Ventral hernia s/p repair Plan: Hb 8.1 after transfusion Patient can be downgraded She still has an NG tube in place. Advance diet as per General surgery ANN drain with minimal output Encourage ambulation SCD for DVT ppx 01/07/22 09:31
[2022-01-07] MEDS: SCOPOLAMINE HYDROBROMIDE PATCH TD SCH (09:41)
[2022-01-07] MEDS: GUAIFENESIN 600 MG SA TAB PO SCH ×2 (09:41→20:44)
[2022-01-07] MEDS ORDERED: FAMOTIDINE 20 MG/2 ML VIAL IV ONE (19:15)
[2022-01-08] MEDS: HYDROMORPHONE HCL 1 MG/ML INJ IV PRN ×4 (00:08→20:26)
[2022-01-08] MEDS: ONDANSETRON 4 MG/2 ML VIAL IV PRN (00:09)
[2022-01-08] MEDS: METRONIDAZOLE 500mg IVPB 500 MG/100 ML BAG IV SCH ×2 (00:09→08:19)
[2022-01-08] MEDS: NA CHLORIDE 0.9% 1,000 ML IV SCH ×3 (00:10→20:00)
--- NOTE | 2022-01-08 00:30 | PN ---
Date of Progress Note: 01/07/2022 Subjective: Status post colon cancer, status post right hemicolectomy. The patient is doing well. No complaint. No nausea, no vomiting. Objective: CHEST: Clear. ABDOMEN: Soft and depressible. Intact surgical site. EXTREMITIES: Good capillary refill. ANN drain minimal serosanguineous. Laboratory Data: Blood work shows a WBC count of 8.3 with hemoglobin of 8.1, and platelets of 174. Chloride is 112. Sodium is 143. The primary doctor, Dr. Nathan, is having an emergent situation, and cannot be available, so hospitalist is currently covering for him. The family understands that. Plan: The plan for today will be discontinue NG tube, discontinue Tom, move her to the floor if it is okay by medical service. Incentive spirometry is CD. Ambulation with assist. HM/MODL Voice ID: [id number] Report ID: [id number]
[2022-01-08] MEDS: CIPROFLOXACIN 400mg IV 400 MG/200 ML BAG IV SCH (08:19)
[2022-01-08] MEDS: PANTOPRAZOLE 40 MG INJ IVP SCH (08:19)
[2022-01-08] MEDS: LOSARTAN POTASSIUM 50 MG TABLET PO SCH (08:19)
[2022-01-08] MEDS: GUAIFENESIN 600 MG SA TAB PO SCH ×2 (08:20→20:26)
[2022-01-08] MEDS: FUROSEMIDE 20 MG TABLET PO SCH (08:20)
[2022-01-08] MEDS ORDERED: DIPHENHYDRAMINE 50 MG/ML VIAL IV ONE (08:52)
--- NOTE | 2022-01-08 13:09 | P.PN ---
Subjective Date of Service: 01/08/22 Chief Complaint: Colon cancer Subjective: Improving (Patient's diet has been advanced.) Physical Examination - Vital Signs Temperature: 98.5 F Blood Pressure: 113/49 Pulse: 82 Respirations: 18 Pulse Ox (%): 95 - Physical Exam General: In no apparent distress, Cooperative HEENT: Atraumatic, Normocephalic Respiratory: Clear to auscultation bilaterally, Normal air movement Gastrointestinal: Soft and benign, Non-distended Musculoskeletal: No clubbing, No swelling, No contractures Neurological: Normal speech, Sensation intact, Cranial nerves 3-12 intact Assessment And Plan - Current Problems (Diagnosis) (1) Colon cancer, ascending Current Visit: No Status: Acute Physician Review Additional Text: Assessment Patient is a 86-year-old female postop day #3 status post laparoscopic right hemicolectomy for an ascending colon mass. She tolerated the procedure well. She has been given blood transfusion postoperatively for hemoglobin of 7.7. Her estimated blood loss was less than 100 cc. 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 Young from general surgery, and Dr. Mathur from oncology. Patient will stay 1 more day
[2022-01-08] MEDS: PIPER TAZO 3.375 GM in NA CHLORIDE 0.9% 100 ML IV SCH (17:02)
[2022-01-09] MEDS: PIPER TAZO 3.375 GM in NA CHLORIDE 0.9% 100 ML IV SCH ×3 (01:31→16:22)
[2022-01-09] MEDS: NA CHLORIDE 0.9% 1,000 ML IV SCH ×2 (03:43→16:00)
[2022-01-09 04:17] LABS: Absolute Lymphocytes (CBC) 0.6 K/uL (0.7-4.9); Hematocrit 22.8 % (36.0-45.0); Lymphocytes % 13.4 % (15.3-44.8); MCV 99.2 fL (80-100); MPV 8.1 fL (7.6-11.3)
[2022-01-09 04:37] LABS: Potassium 2.9 mmol/L (3.5-5.1)
[2022-01-09] MEDS: ONDANSETRON 4 MG/2 ML VIAL IV PRN (04:59)
[2022-01-09] MEDS ORDERED: METOPROLOL TARTRATE 5 MG/5 ML INJ IV STA (05:32)
[2022-01-09] MEDS: KCL 20 MEQ/100 mL IVPB 20 MEQ/100 ML BAG IV SCH ×3 (05:58→11:41)
[2022-01-09] MEDS: LOSARTAN POTASSIUM 50 MG TABLET PO SCH (08:32)
[2022-01-09] MEDS: FUROSEMIDE 20 MG TABLET PO SCH (08:33)
[2022-01-09] MEDS: GUAIFENESIN 600 MG SA TAB PO SCH ×2 (08:33→21:04)
[2022-01-09] MEDS: HYDROMORPHONE HCL 1 MG/ML INJ IV PRN (08:33)
[2022-01-09] MEDS: PANTOPRAZOLE 40 MG INJ IVP SCH (11:43)
--- NOTE | 2022-01-09 12:29 | EKG ---
Test Date: 2022-01-09 Test Time: 05:42:48 Web Production Assistant: LUCAS MEASUREMENT RESULTS: Intervals: Rate: 139 [place]: QRSD: 84 QT: 336 QTc: 511 Chrisman: P: [place]: QRS: 25 T: 222 INTERPRETIVE STATEMENTS: Atrial fibrillation with rapid ventricular response Low voltage QRS Nonspecific ST and T wave abnormality, probably digitalis effect Abnormal ECG Compared to ECG 12/23/2021 14:08:15 Low QRS voltage now present ST (T wave) deviation now present Sinus rhythm no longer present Myocardial infarct finding no longer present Electronically Signed On 01-09-22 12:27:50 CDT by Dre Romero
--- NOTE | 2022-01-09 12:51 | P.PN ---
Subjective Date of Service: 01/09/22 Chief Complaint: Colon cancer Subjective: Improving (Well no new complaints daughter at the bedside needs some home health and assistance tolerating a diet) Review of Systems General: Weakness Gastrointestinal: Abdominal Pain Physical Examination - Vital Signs Temperature: 98.3 F Blood Pressure: 108/48 Pulse: 74 Respirations: 18 Pulse Ox (%): 96 - Physical Exam General: Alert, Oriented x3 Cardiovascular: No edema, Regular rate/rhythm Gastrointestinal: Hypoactive - Studies Laboratory Data (last 24 hrs) 01/09/22 03:29: Sodium 141, Potassium 2.9 L*, BUN 6 L, Creatinine 0.41 L, Glucose 125 H 01/09/22 03:29: WBC 4.10 L, Hgb 7.8 L, Hct 22.8 L, Plt Count 183 Assessment And Plan - Current Problems (Diagnosis) (1) Colon cancer, ascending Current Visit: No Status: Acute Plan: Patient is 86 years of age s/p day for laparoscopic right-sided hemicolectomy is doing better tolerating a diet still very weak plan to ambulate advance diet Has mild hypokalemia also mildly anemic vital signs stable will evaluate off oxygen discharge planning discussed with Dr. oYung plan to keep her over the weekend should she tolerates a diet she still has a ANN drain we will also plan to transfuse her 2 mild anemia
[2022-01-09] MEDS ORDERED: NA CHLORIDE 0.9% 250 ML IV SCH (15:00)
--- NOTE | 2022-01-09 18:04 | PN ---
Date of Progress Note: 01/09/2022 Subjective: History of bowel resection for colon cancer. Patient feels better. She is hungry. She is taking clear liquid diet. We are trying to give her some nutrition since she was even week befor e the surgery, having some issues with anemia and also been n.p.o. every now and then for procedures with nutrition not been optimized, but also she had a colon cancer and she [facility] was successful. She is out of the ICU. She is still an 86-year-old with multiple medical problems. Her primary doctors had a time-out at this moment for family emergencies . We appreciate the hospitalist trying to just follow and manage her medical issues. Objective: Chest: Clear. Abdomen: Soft and depressible. ANN drain is still serosanguineous present. We changed the dressings today. Extremities: Good capillary refill. Laboratory Data: Blood work shows WBC count of 4.1, hemoglobin of 7.8, and a platelets of 183. Pota ssium is 2.9. We are going to start potassium protocols. Plan: We are going to advanced diet slowly. She is not ready for normal diet yet. She still has an ileus present. She is very hungry. She is trying to spread apart as best as she can the liquid t. She is passing gas from below, although no bowel movement yet. I noticed in the medical issues t hat she is having some arrhythmia occasionally. She is not new to that, but obviously I will let the medical doctors to try and to find any other etiology of that. From the ambulation standpoint, we need a rehab help to try to get her out of the bed and continue incentive spirometry. Continue the antibiotics. HM/MODL Voice ID: [id number] Report ID: [id number]
[2022-01-09] MEDS ORDERED: POTASSIUM CL SA 10 MEQ TAB PO ONE (22:00)
[2022-01-09 22:43] LABS: Hematocrit 25.2 % (36.0-45.0)
[2022-01-10] MEDS ORDERED: NA CHLORIDE 0.9% 100 ML ONE (01:22)
[2022-01-10] MEDS: PIPER TAZO 3.375 GM in NA CHLORIDE 0.9% 100 ML IV SCH ×3 (01:24→16:34)
[2022-01-10] MEDS: NA CHLORIDE 0.9% 1,000 ML IV SCH ×3 (01:26→22:53)
[2022-01-10 05:58] LABS: Potassium 3.7 mmol/L (3.5-5.1)
[2022-01-10] MEDS: PANTOPRAZOLE 40 MG INJ IVP SCH (08:59)
[2022-01-10] MEDS: SCOPOLAMINE HYDROBROMIDE PATCH TD SCH (08:59)
[2022-01-10] MEDS: FUROSEMIDE 20 MG TABLET PO SCH (09:00)
[2022-01-10] MEDS ORDERED: POTASSIUM CL SA 10 MEQ TAB PO ONE (09:00)
[2022-01-10] MEDS: GUAIFENESIN 600 MG SA TAB PO SCH (09:00)
[2022-01-10] MEDS: LOSARTAN POTASSIUM 50 MG TABLET PO SCH (09:00)
--- NOTE | 2022-01-10 10:03 | P.PN ---
Subjective Date of Service: 01/10/22 Chief Complaint: Colon cancer Subjective: Improving (Patient is doing much better today tolerating diet has a bowel movement) Review of Systems Unremarkable General: Weakness Physical Examination - Vital Signs Temperature: 97.9 F Blood Pressure: 139/61 Pulse: 79 Respirations: 16 Pulse Ox (%): 100 - Physical Exam General: Alert, In no apparent distress, Oriented x3 Respiratory: Clear to auscultation bilaterally Cardiovascular: No edema, Regular rate/rhythm - Studies Laboratory Data (last 24 hrs) 01/10/22 05:21: Sodium 143, Potassium 3.7 D, BUN 3 L, Creatinine 0.46 L, Glucose 126 H 01/09/22 22:32: Hgb 8.9 L D, Hct 25.2 L 01/09/22 20:16: Potassium 3.1 L Assessment And Plan - Current Problems (Diagnosis) (1) Colon cancer, ascending Current Visit: No Status: Acute Plan: This post laparoscopic cholecystectomy patient is doing much better advancing diet labs reviewed patient was transfused 1 unit of packed red blood cells yesterday hypokalemia corrected patient will need some rehab still very weak no change in present medications DVT prophylaxis
[2022-01-10] MEDS: ENOXAPARIN 40 MG/0.4 ML SQ SCH (10:42)
--- NOTE | 2022-01-10 11:58 | PN ---
Date of Progress Note: 01/10/2022 Reason For Service: Status post hemicolectomy for colon cancer. Subjective: Doing well. No complaint. No nausea. No vomiting. Still taking full liquid diet. No shortness of breath. No chest pain. No fever. Objective: Chest: Clear. Abdomen: Soft and depressible. Intact midline. ANN drain serosanguineous. Extremities: Good capillary refill. No calf tenderness. Laboratory Data: Blood work reviewed. Hemoglobin 8.9. Potassium is corrected. Plan: Today slowly advance diet. We are going to get to soft diet at this moment, out of bed, ambul ation, incentive spirometry. Continue with cardiac monitoring since yesterday she went to [facility]. The ir goal is if possible be discharged on Wednesday if she is tolerating the diet over the weekend and if she is medically clear. BIJAL/MODL Voice ID: [id number] Report ID: [id number]
[2022-01-11] MEDS: PIPER TAZO 3.375 GM in NA CHLORIDE 0.9% 100 ML IV SCH ×3 (01:55→16:09)
[2022-01-11 04:06] LABS: Potassium 3.4 mmol/L (3.5-5.1)
[2022-01-11] MEDS: PANTOPRAZOLE 40 MG INJ IVP SCH (07:52)
[2022-01-11] MEDS: LOSARTAN POTASSIUM 50 MG TABLET PO SCH (07:52)
[2022-01-11] MEDS: ENOXAPARIN 40 MG/0.4 ML SQ SCH (07:52)
[2022-01-11] MEDS: NA CHLORIDE 0.9% 1,000 ML IV SCH (08:00)
[2022-01-11] MEDS ORDERED: POTASSIUM CL SA 10 MEQ TAB PO ONE ×2 (09:00→16:37)
[2022-01-11] MEDS ORDERED: Oxycodone HCl/Acetaminophen 1 TAB TAB PO PRN (09:47)
--- NOTE | 2022-01-11 09:48 | P.PN ---
Subjective Date of Service: 01/11/22 Chief Complaint: Colon cancer s/p laparoscopic cholecystectomy Subjective: Improving (Proving doing much better no nausea vomiting or diarrhea eating and drinking passing gas drainage from the ANN drain) Review of Systems Unremarkable Physical Examination - Vital Signs Temperature: 98.2 F Blood Pressure: 152/64 Pulse: 74 Respirations: 18 Pulse Ox (%): 99 - Physical Exam General: Alert, Oriented x3 Neck: Supple Respiratory: Clear to auscultation bilaterally Gastrointestinal: Normal bowel sounds, Soft and benign - Studies Laboratory Data (last 24 hrs) 01/11/22 02:30: Sodium 143, Potassium 3.4 L, BUN 4 L, Creatinine 0.39 L, Glucose 112 H Assessment And Plan - Current Problems (Diagnosis) (1) Colon cancer, ascending Current Visit: No Status: Acute Plan: Patient is doing much better tolerating diet passing gas no new complaints no abdominal pain chemistries reviewed hemoglobin stable antibiotics and pantoprazole orders as per Dr. Young as per general surgery possible discharge tomorrow
[2022-01-12] MEDS: PIPER TAZO 3.375 GM in NA CHLORIDE 0.9% 100 ML IV SCH ×2 (00:40→09:38)
[2022-01-12] MEDS ORDERED: PANTOPRAZOLE 40MG TABLET PO SCH (06:30)
[2022-01-12 08:56] VITALS: O2SAT 98
[2022-01-12] MEDS: LOSARTAN POTASSIUM 50 MG TABLET PO SCH (09:37)
[2022-01-12] MEDS: ENOXAPARIN 40 MG/0.4 ML SQ SCH (09:37)
--- NOTE | 2022-01-12 10:34 | P.DS ---
Admission Date: 01/05/22 Discharge Date: 01/12/22 Disposition: ROUTINE DISCHARGE Discharge Condition: GOOD Reason for Admission: Colon cancer s/p laparoscopic right hemicolectomy Hospital Course: unremarkable Vital Signs/Physical Exam: Temp Pulse Resp BP Pulse Ox 97.0 F 85 18 161/77 H 96 01/12/22 08:00 01/12/22 08:00 01/12/22 08:00 01/12/22 08:00 01/12/22 08:00 General: Alert, In no apparent distress, Oriented x3, Cooperative HEENT: Atraumatic, PERRLA Neck: Supple Respiratory: Normal air movement Cardiovascular: No edema, Normal pulses, Regular rate/rhythm Gastrointestinal: Normal bowel sounds, Soft and benign, No rebound, No guarding Musculoskeletal: No clubbing, No swelling, No contractures, No erythema, No tenderness, No warmth Integumentary: No rashes, No breakdown Neurological: Normal speech Laboratory Data at Discharge: WBC 4.10 K/uL (4.3-10.9) L 01/09/22 03:29 Hgb 8.9 g/dL (12.0-15.0) L D 01/09/22 22:32 Hct 25.2 % (36.0-45.0) L 01/09/22 22:32 Plt Count 183 K/uL (152-406) 01/09/22 03:29 Sodium 139 mmol/L (136-145) 01/12/22 05:15 Potassium 4.0 mmol/L (3.5-5.1) 01/12/22 05:15 BUN 6 mg/dL (7-18) L 01/12/22 05:15 Creatinine 0.44 mg/dL (0.55-1.3) L 01/12/22 05:15 Glucose 115 mg/dL (74-106) H 01/12/22 05:15 Magnesium 1.9 mg/dL (1.8-2.4) 01/07/22 04:44 Home Medications: Furosemide 20 mg PO DAILY 12/23/21 Losartan Potassium 100 mg PO DAILY 12/23/21 Physician Discharge Instructions: may take a shower with dressing off Bandaid to ANN wound area daily Diet: [place] Activity: No lifting more than 10 lbs Followup: Trenton Nathan MD [Primary Care Provider] - Kush Young MD [ACTIVE - CAN ADMIT] - 1 Week
[2022-01-12 11:50] VITALS: BP 153/69; TEMP 98.1
--- NOTE | 2022-01-12 13:52 | PN ---
Date of Progress Note: 01/12/2022 Diagnosis: Colon cancer, status post right hemicolectomy. Subjective: Doing well. No nausea. No vomiting. Finally, tolerating good diet. No shortness of b reath. No chest pain. No fever. Physical Examination: Chest: Clear. Abdomen: Soft and depressible. Intact midline. ANN removed that was serosanguineous, minimal. Extremities: Good capillary refill. Plan: The patient will be discharged home. Follow up in my office in a week. May take showers with dressings off, soft diet. BIJAL/RHIANNA Voice ID: [id number] Report ID: [id number]
--- NOTE | 2022-01-13 22:34 | OP ---
Date of Procedure: 01/05/2022 Surgeon: Kush Young MD Helium Arc Welder: Mally Martinez. Preoperative Diagnoses: Colon cancer and heart disease. Procedures: Laparoscopic assisted right hemicolectomy, laparoscopic extensive lysis of adhesions, an d open repair of incisional ventral hernia. Estimated Blood Loss: 100 cc. Specimen: Right colon. Finding: Proximal transverse colon mass. Anesthesia: General plus local. Complications: None. Drains: ANN #10. Indication: This is a case of a female who has history of anemia. The patient was admitted to the [facility], medically optimized and she was discharged home with the plan of having surgery since she wa nted to spend the weekend at home. There is a question between the imaging described and the colonos copy report about location of the mass. Radiologist put it on the proximal transverse colon and the Dr. Boo put it in the distal transverse colon. This may represent a change in our surgery between right hemicolectomy or even left hemicolectomy. So we explained to the patient's family the possibi lities of right hemicolectomy, laparoscopic versus open, extend right hemicolectomy, even left hemico lectomy. She wants to have the surgery done in this institution as she does not want to go to [facility]. It is important since this is cancer to be done. So we discussed that with the primary doctor wh o asked me to see if I can do the surgery here and I was okay with that as long as the medical doctor feels comfortable managing her medical issues. To the family, the daughter, we explained to her mul tiple on occasions the benefits, alternatives, and risks of those with 3 alternatives mentioned above , even possible ostomy, which include, but are not limited to infection, bleeding, damage to adjacent structures, anesthesia complication, recurrence, [place], and . She also understands we may not rel ieve any symptoms, may need more than one surgical intervention. She understood and signed a consent . She also understands the importance of bowel prep and understands the importance of following up w ith the oncologist after the surgery is done for any other necessary procedures that need to be done. The patient understood and signed a consent. Procedure In Detail: The patient was brought to the operating room and placed in supine position. A nesthesia was done without complication. Abdomen was prepped and draped in sterile fashion. After t hat, an incision was made in the periumbilical region. When we go over that area, we noted the taylor n to have an incisional ventral hernia in that region. This incision was opened. Hernia was identif ied. Hernia sac was removed. Then, Cristal trocar was placed inside the fascia. Cristal trocar was c arefully introduced. Pneumoperitoneum was obtained. When we go in that area, we noticed that the pa tient had extensive amount of adhesions so we utilized the laparoscopic technique with 5 mm trocars p laced to at least take those adhesions down and trying to identify the area of the tumor laparoscopic ally. After we finished the adhesions, released the small bowel and released the large bowel. We we re able to visualize the area of the pelvis with no masses seen. Liver with no masses seen. Stomach soft and compressible. Apparently, the mass is on the proximal transverse colon. So, we may be epi latasha more into the right hemicolectomy. It is hard for me to determine that completely I will have t o put my hands inside at least to fill it. The patient has so many adhesions in that area that most likely we are going to convert this to an open procedure. Although laparoscopic technique is helping us to visualize the area, clean the adhesions, and at that moment, mobilized the white line of Toldt . Once we had that done and we secured hemostasis then we proceeded to extend that ventral hernia th at she has. Extended incision to do a hemicolectomy. At that moment, we proceeded then to carefully extend incision and do an exploratory laparotomy. Once again, the same finding as the laparoscopic findings were encountered. The adhesions at least were removed, giving us the opportunity to do a mi nimal laparotomy to complete this. Once we have the bowel mobilized, it will be easier to at least h ave the procedure externally. Once again we palpated the mass and the proximal transverse colon, so we committed to a right hemicolectomy. The liver, the omentum, and peritoneum were checked with no e vidence of metastatic disease. The small bowel was inspected and there was no mass palpated. In the large bowel and the proximal transverse colon, we cannot palpate any other masses. Once again, we c ontinued freeing the area from the peritoneal attachments and the lines of Toldt from the cecum to th e hepatic flexure and that was done to mobilize the colon. The dissection was extended across the il eocolic junction and terminal ileum was mobilized. Both the ureters were carefully identified and pr otected. The duodenum was also identified and protected. The hepatic flexure was carefully mobilize d. The point of transection was selected on the transverse colon and terminal ileum to make sure we have at least 5 cm margins. This part of transection was transected with a SASHA 60. The peritoneum c overing the mesentery was carefully scored. The ileocolic artery was identified and ligated with scott k and the LigaSure. The right main trunk of the middle colic was also ligated and also the right col ic arteries. The rest of the mesentery was associated with lymph nodes were carefully divided with t he help of LigaSure device. The specimen was removed, marked and sent to the pathologist. We irriga dee the area and checked for complete hemostasis. At that moment, we proceeded to appose together th e proximal and distal segments of bowel and found to be lying comfortably with no tension. Stay sutu re was placed at the end of what will be the anastomosis end. The antimesenteric borders of the christophe l were identified. Enterotomies were made and then the GIA60 was placed over the area. The mack were fired. We once again checked for hemostasis inside. The enterotomies were then approximated an d closed with the help of TA stapling device. Further securing of the anastomosis was done with the help of silk. There was no bleeding and good anastomosis in between. The mesenteric defect was clos ed with the help of 0 chromic. The abdominal cavity was then irrigated and suctioned. At that momen t, I proceeded then to close the fascia after having instrument and sponge counts correct, with #1 ny cody in a running fashion. The area was irrigated. We irrigated the subcutaneous tissue and then cary sed the skin with mack. Sponge count and instrument counts were correct. The patient tolerated t he procedure well. The patient was sent to recovery in stable condition. I have to mention that, be fore that we left a ANN drain on the right side through one of the trocar sites from the laparoscopy. BIJAL/RHIANNA Voice ID: [id number] Report ID: [id number]
== END 2022-01-12 12:14 | disposition home or self-care (01) | DRG 330 ==
LOC: OR 07:36 → 3RD-ICU 11:44 → 2ND 01-07 09:07
PROVIDERS: ADMIT Surgery; ATTEND Internal Medicine
PROC: 0DNE4ZZ Release Large Intestine, Percutaneous Endoscopic Approach (ICD-10-PCS; 2022-01-05)
PROC: 0DN84ZZ Release Small Intestine, Percutaneous Endoscopic Approach (ICD-10-PCS; 2022-01-05)
PROC: 0DNW0ZZ Release Peritoneum, Open Approach (ICD-10-PCS; 2022-01-05)
PROC: 0WQF0ZZ Repair Abdominal Wall, Open Approach (ICD-10-PCS; 2022-01-05)
PROC: 0W9J0ZZ Drainage of Pelvic Cavity, Open Approach (ICD-10-PCS; 2022-01-05)
PROC: 0DTF0ZZ Resection of Right Large Intestine, Open Approach (ICD-10-PCS; principal; 2022-01-05 09:45)
PROC: 30233N1 Transfusion of Nonautologous Red Blood Cells into Peripheral Vein, Percutaneous Approach (ICD-10-PCS; 2022-01-06)
DX: C18.4 Malignant neoplasm of transverse colon (principal); D62 Acute posthemorrhagic anemia; K56.7 Ileus, unspecified; I10 Essential (primary) hypertension; K43.9 Ventral hernia without obstruction or gangrene; F03.90 Unspecified dementia, unspecified severity, without behavioral disturbance, psychotic disturbance, mood disturbance, and anxiety; I48.91 Unspecified atrial fibrillation; E87.6 Hypokalemia; Z53.31 Laparoscopic surgical procedure converted to open procedure; Z90.710 Acquired absence of both cervix and uterus; Z79.899 Other long term (current) drug therapy; Z20.822 Contact with and (suspected) exposure to COVID-19
CPT/HCPCS: 36415; 74018; 80048; 83735; 84132; 85014; 85018; 85025; 86850; 86900; 86901; 87811; 88309; 93005; 94010; 97110; 97116; 97161; 97530; 97760; C9113; J0690; J0744; J1100; J1170; J1200; J1650; J2001; J2250; J2370; J2405; J2543; J2704; J2710; J2765; J3010; J3480; J7030; J7050; J7120; P9016

== ENCOUNTER 2022-03-07 16:20 | Emergency (ER) | payer OTHER, MEDICARE ==
--- OUTSIDE RECORDS SUMMARY | 2022-03-07 16:23 | XMS REPORT | Continuity of Care Document ---
:1935 Author Organization [facility] t Address [address] [place] [address] Dr. Fonseca [address] [place] [id number] Care Team Providers Name Role Phone YAS CEE Attending Clinician Unavailable Payers Payer Name Policy Type Policy Number Effective Date Expiration Date S tere MEDICARE PART A \T\ [id number] 1999 B 00:00:00 [facility] [id number] 2015 MEDICARE SUPPLEMENT 00:00:00 Problems This patient has no known problems. Allergies, Adverse Reactions, Alerts Allergy Allergy Status Severity Reaction(s) Onset Inactive Treating Comm ents Source Name Type Date Date Clinician NO KNOWN Drug Active [facility] ALLERG Class ity of [facility] Medications This patient has no known medications. Procedures This patient has no known procedures. Encounters Start End Encounter Admission Attending Care Care Encounter Source Date/Time Date/Time Type Type Clinicians Facility Department ID 2020-06-23 2020-06-23 Outpatient Roys CEE WADAVIDA [facility] [id number] [facility] 08:55:00 08:55:00 YAS rosie [facility] Results This patient has no known results.
[2022-03-07 16:55] LABS: Absolute Lymphocytes (CBC) 1.1 K/uL (0.7-4.9); Hematocrit 24.9 % (36.0-45.0); MPV 7.3 fL (7.6-11.3); RBC Red Blood Cell Count 2.32 M/uL (3.86-4.86)
[2022-03-07 17:17] LABS: Albumin 3.4 g/dL (3.4-5.0); Bilirubin Total 1.1 mg/dL (0.2-1.0); Magnesium 2.2 mg/dL (1.8-2.4); Potassium 3.9 mmol/L (3.5-5.1); Protein, Total 6.3 g/dL (6.4-8.2); Troponin High Sensitivity 8.7 pg/mL (<58.9)
--- NOTE | 2022-03-07 17:19 | RAD REPORT ---
EXAM DESCRIPTION: CT - Head Brain Wo Cont - 03/07/2022 5:05 pm CLINICAL HISTORY: Headache, new or worsening COMPARISON: <Comparisons> TECHNIQUE: All CT scans are performed using dose optimization technique as appropriate and may inclu de automated exposure control or mA/KV adjustment according to patient size. FINDINGS: No intracranial hemorrhage, hydrocephalus or extra-axial fluid collection.No areas of brai n edema or evidence of midline shift. Cerebral atrophy which is mild age advanced. Chronic small vess el ischemic changes. The paranasal sinuses and mastoids are clear. The calvarium is intact. IMPRESSION: No acute intracranial abnormality. Senescent changes.
[2022-03-07] MEDS ORDERED: LOSARTAN POTASSIUM 50 MG TABLET ONE (17:31)
[2022-03-07 17:38] LABS: Anisocytosis 2+; Blood Morphology Comment NOTED (NOT SEEN); Macrocytosis SLIGHT; Platelet Estimate ADEQ; White Blood Cell Scan OK (OK)
[2022-03-07] MEDS ORDERED: METOCLOPRAMIDE 10 MG/2mL INJ ONE (17:54)
[2022-03-07] MEDS ORDERED: DIPHENHYDRAMINE 50 MG/ML VIAL ONE (17:54)
[2022-03-07] MEDS ORDERED: KETOROLAC 30 MG/ML INJ ONE (17:54)
--- NOTE | 2022-03-07 18:32 | ER ---
Nurse's Notes [facility] Name: Claudia Thomas Age: 86 yrs Sex: Female : 1935 Arrival Date: 03/07/2022 Time: 16:24 Bed 2 Private MD: Diagnosis: Essential (primary) hypertension;Medication non-compliance;Cephalgia Presentation: 03/07 16:31 Chief complaint: Patient states: Pt reports ongoing headache x1 weeks with associated kb3 nausea. Denies fever, photophobia, dizziness. EMS reports SBP 180's upon arrival and pt stated she forgot to take her BP meds today. PT received Zofran 4mg IVP en route and reports nausea has resolved. Coronavirus screen: Vaccine status: Patient reports receiving the 2nd dose of the covid vaccine. Client denies travel out of the [place] in the last 14 days. Ebola Screen: Patient negative for fever greater than or equal to 101.5 degrees Fahrenheit, and additional compatible Ebola Virus Disease symptoms Patient denies exposure to infectious person. Patient denies travel to an Ebola-affected area in the 21 days before illness onset. Initial Sepsis Screen: Does the patient meet any 2 criteria? No. Patient's initial sepsis screen is negative. Does the patient have a suspected source of infection? No. Patient's initial sepsis screen is negative. Risk Assessment: Do you want to hurt yourself or someone else? Patient reports no desire to harm self or others. Onset of symptoms was February 28, 2022. 16:31 Method Of Arrival: EMS: [facility] kb3 16:31 Acuity: ALFRED 3 kb3 Triage Assessment: 16:35 General: Appears in no apparent distress. Behavior is calm, cooperative. Pain: kb3 Complains of pain in back of head Pain does not radiate. Pain currently is 8 out of 10 on a pain scale. Quality of pain is described as aching. Neuro: No deficits noted. Reports headache. Historical: - Allergies: 16:35 No Known Allergies; kb3 - Home Meds: 16:35 furosemide 20 mg Oral tab 1 tab once daily [Active]; losartan 100 mg Oral tab 1 tab kb3 once daily [Active]; - PMHx: 16:35 Anemia; CHF; Hypertension; Colon CA; kb3 - PSHx: 16:35 hysterectomy; Bowel Resection; kb3 - Immunization history:: Adult Immunizations up to date, Client reports receiving the 2nd dose of the Covid vaccine, Last tetanus immunization: up to date. - Social history:: Smoking status: Patient denies any tobacco usage or history of. Screenin:39 Abuse screen: Denies threats or abuse. Denies injuries from another. Nutritional kb3 screening: No deficits noted. Tuberculosis screening: No symptoms or risk factors identified. Fall Risk None identified. Assessment: 16:39 General: See triage note. kb3 Vital Signs: 16:31 BP 156 / 63; Pulse 83; Resp 20; Temp 98; Pulse Ox 98% ; Weight 78.02 kg; Height 5 ft. 3 kb3 in. (160.02 cm); Pain 8/10; 19:00 BP 118 / 42; Pulse 78; Resp 20; Pulse Ox 97% ; Pain 2/10; kb3 16:31 Body Mass Index 30.47 (78.02 kg, 160.02 cm) kb3 ED Course: 16:24 Patient arrived in ED. eb 16:24 Sobeida Adams MD is Attending Physician. sd2 16:35 Triage completed. kb3 16:35 Arm band placed on right wrist. Patient placed in an exam room, on a stretcher, on kb3 case monitor, on pulse oximetry. 16:39 Patient has correct armband on for positive identification. Placed in gown. Bed in low kb3 position. Side rails up X2. Adult w/ patient. Warm blanket given. 16:39 No provider procedures requiring assistance completed. Maintain EMS IV. Dressing kb3 intact. Good blood return noted. Site clean \T\ dry. Gauge \T\ site: 20G LAC. 17:04 Laya Jara, RN is Primary Nurse. kb3 17:07 CT Head Brain wo Cont In Process Unspecified. EDMS Administered Medications: 17:35 Drug: Losartan 100 mg Route: PO; kb3 19:15 Follow up: Response: No adverse reaction kb3 17:58 Drug: Reglan (metoCLOPramide) 10 mg Route: IVP; Site: left antecubital; kb3 19:15 Follow up: Response: No adverse reaction kb3 18:00 Drug: Benadryl (diphenhydrAMINE) 25 mg Route: IVP; Site: left antecubital; kb3 19:15 Follow up: Response: No adverse reaction kb3 18:02 Drug: Ketorolac 15 mg Route: IVP; Site: left antecubital; kb3 19:15 Follow up: Response: No adverse reaction kb3 Medication: 16:39 VIS not applicable for this client. kb3 Outcome: 18:31 Discharge ordered by . sd2 19:11 Discharged to home ambulatory. kb3 19:11 Condition: improved 19:11 Discharge instructions given to patient, family, Instructed on discharge instructions, follow up and referral plans. medication usage, Demonstrated understanding of instructions, follow-up care, medications. 19:16 Patient left the ED. kb3 Signatures: Dispatcher [employer] EDMS Claritza Siddiqui Stephanie, MD MD sd2 Laya Jara RN RN kb3 Corrections: (The following items were deleted from the chart) 19:15 08:00 Benadryl (diphenhydrAMINE) 25 mg IVP in left antecubital kb3 kb3
--- NOTE | 2022-03-07 18:32 | EDPHYS ---
Physician Documentation [facility] Name: Claudia Thomas Age: 86 yrs Sex: Female : 1935 Arrival Date: 03/07/2022 Time: 16:24 Bed 2 Private MD: ED Physician Sobeida Adams HPI: 03/07 16:39 This 86 yrs old Female presents to ER via EMS with complaints of headache. sd2 16:39 86-year-old female presents via EMS with chief complaint of posterior headache. She sd2 reports that it has been ongoing and stayed about the same for the past week. She reports associated nausea but denies any photophobia or phonophobia. She denies any fevers or vomiting but does endorse associated nausea. Daughter reports patient has a history of "fluid on the brain." Pt also forgot to take her BP medication today and was found to have a BP of 180s systolic with EMS. Daughter reports BP is normally well controlled. Given 4 mg of Zofran and IVFs en route.. Historical: - Allergies: 16:35 No Known Allergies; kb3 - Home Meds: 16:35 furosemide 20 mg Oral tab 1 tab once daily [Active]; losartan 100 mg Oral tab 1 tab kb3 once daily [Active]; - PMHx: 16:35 Anemia; CHF; Hypertension; Colon CA; kb3 - PSHx: 16:35 hysterectomy; Bowel Resection; kb3 - Immunization history:: Adult Immunizations up to date, Client reports receiving the 2nd dose of the Covid vaccine, Last tetanus immunization: up to date. - Social history:: Smoking status: Patient denies any tobacco usage or history of. ROS: 16:39 Constitutional: Negative for fever, chills, and weight loss, Eyes: Negative for injury, sd2 pain, redness, and discharge, Cardiovascular: Negative for chest pain, palpitations, and edema, Respiratory: Negative for shortness of breath, cough, wheezing. Abdomen/GI: Negative for abdominal pain, vomiting, diarrhea. Positive for nausea. MS/Extremity: Negative for injury and deformity, Skin: Negative for injury, rash, and discoloration, Neuro: Positive for headache, Negative for numbness and tingling. Exam: 16:39 Constitutional: This is a well developed, well nourished patient who is awake, alert, sd2 and in no acute distress. Head/Face: Normocephalic, atraumatic. Eyes: EOMI, normal conjunctiva bilaterally Chest/axilla: Normal chest wall appearance and motion. Nontender with no deformity. Cardiovascular: Regular rate and rhythm with a normal S1 and S2. No gallops, murmurs, or rubs. 2+ distal pulses. Respiratory: Lungs have equal breath sounds bilaterally, clear to auscultation and percussion. No rales, rhonchi or wheezes noted. No increased work of breathing, no retractions or nasal flaring. Abdomen/GI: Soft, non-tender, with normal bowel sounds. No guarding or rebound. No evidence of tenderness throughout. Skin: Warm, dry with normal turgor. Normal color with no rashes, no lesions, and no evidence of cellulitis. MS/ Extremity: Pulses equal, no cyanosis. Neurovascular intact. Full, normal range of motion. Ambulatory without difficulty. Neuro: Awake and alert, GCS 15, oriented to person, place, time, and situation. Cranial nerves II-XII grossly intact. Motor strength 5/5 in all extremities. Sensory grossly intact. Cerebellar exam normal. Psych: Awake, alert, with orientation to person, place and time. Behavior, mood, and affect are within normal limits. Vital Signs: 16:31 BP 156 / 63; Pulse 83; Resp 20; Temp 98; Pulse Ox 98% ; Weight 78.02 kg; Height 5 ft. 3 kb3 in. (160.02 cm); Pain 8/10; 19:00 BP 118 / 42; Pulse 78; Resp 20; Pulse Ox 97% ; Pain 2/10; kb3 16:31 Body Mass Index 30.47 (78.02 kg, 160.02 cm) kb3 MDM: 16:24 Patient medically screened. sd2 16:39 Differential Diagnosis Differential diagnosis includes but is not limited to: Tension sd2 headache, migraine headache, intracranial hemorrhage, dehydration, electrolyte abnormality, musculoskeletal, meningitis among others. Data reviewed: vital signs, nurses notes, EMS record. 18:29 Data reviewed: lab test result(s), EKG, radiologic studies. Counseling: I had a sd2 detailed discussion with the patient and/or guardian regarding: the historical points, exam findings, and any diagnostic results supporting the discharge/admit diagnosis, lab results, radiology results, the need for outpatient follow up, to return to the emergency department if symptoms worsen or persist or if there are any questions or concerns that arise at home. Medical screen evaluation completed. EMTALA emergency medical condition absent. ED course: Labs and imaging reviewed. Labs grossly WNCL for patient and at her baseline levels. CT head with no acute abnormality. BP improved and patient treated with her normal home dose BP medication. CRYSTAL improved. Pt resting comfortably. No focal neuro deficits. Doubt ICH at this time. Pt comfortable with plan for discharge and outpatient follow up. Verbalizes understanding of strict return precautions.. 03/07 16:38 Order name: CBC with Diff; Complete Time: 17:39 sd2 03/07 16:38 Order name: CMP; Complete Time: 17:19 sd2 03/07 16:38 Order name: Magnesium; Complete Time: 17:19 sd2 03/07 16:38 Order name: Troponin High Sensitivity; Complete Time: 17:19 sd2 03/07 16:38 Order name: CT Head Brain wo Cont; Complete Time: 17:19 sd2 03/07 16:58 Order name: CBC Smear Scan; Complete Time: 17:39 EDMS 03/07 16:38 Order name: EKG - Nurse/Tech; Complete Time: 17:05 sd2 Administered Medications: 17:35 Drug: Losartan 100 mg Route: PO; kb3 19:15 Follow up: Response: No adverse reaction kb3 17:58 Drug: Reglan (metoCLOPramide) 10 mg Route: IVP; Site: left antecubital; kb3 19:15 Follow up: Response: No adverse reaction kb3 18:00 Drug: Benadryl (diphenhydrAMINE) 25 mg Route: IVP; Site: left antecubital; kb3 19:15 Follow up: Response: No adverse reaction kb3 18:02 Drug: Ketorolac 15 mg Route: IVP; Site: left antecubital; kb3 19:15 Follow up: Response: No adverse reaction kb3 Disposition Summary: 03/07/22 18:31 Discharge Ordered Location: Home sd2 Problem: new sd2 Symptoms: have improved sd2 Condition: Stable sd2 Diagnosis - Essential (primary) hypertension sd2 - Medication non-compliance sd2 - Cephalgia sd2 Followup: sd2 - With: Private Physician - When: 2 - 3 days - Reason: Recheck today's complaints, Continuance of care, Re-evaluation by your physician Discharge Instructions: - Discharge Summary Sheet sd2 - General Headache Without Cause sd2 - Hypertension, Adult sd2 - Managing Your Hypertension sd2 Forms: - Medication Reconciliation Form sd2 - Thank You Letter sd2 - Antibiotic Education sd2 - Prescription Opioid Use sd2 Signatures: Dispatcher [employer] Sobeida Johnson MD MD sd2 Laya Jara RN RN kb3
[2022-03-07 19:47] VITALS: BP 118/42; O2SAT 97
[2022-03-07 19:48] VITALS: TEMP 98
== END 2022-03-07 19:16 | disposition home or self-care (01) ==
LOC: ER 16:20
DX: I10 Essential (primary) hypertension (principal); R51.9 Headache, unspecified; Z91.14 Patient's other noncompliance with medication regimen; I50.9 Heart failure, unspecified
CPT/HCPCS: 85025; 36415; 83735; 84484; 80053; 70450; 96375; 96374; 99284; J2765; J1200

== ENCOUNTER 2022-06-26 13:23 | Emergency (ER) | payer OTHER, MEDICARE ==
--- OUTSIDE RECORDS SUMMARY | 2022-06-26 13:25 | XMS REPORT | Continuity of Care Document ---
:1935 Author Organization [facility] t Address [address] [place] [address] Care Team Providers Name Role Phone YAS CEE Attending Clinician Unavailable Payers Payer Name Policy Type Policy Number Effective Date Expiration Date S tere MEDICARE PART A \T\ [id number] 1999 B 00:00:00 [facility] [id number] 2015 MEDICARE SUPPLEMENT 00:00:00 Problems This patient has no known problems. Allergies, Adverse Reactions, Alerts Allergy Allergy Status Severity Reaction(s) Onset Inactive Treating Comm ents Source Name Type Date Date Clinician NO KNOWN Drug Active [facility] ALLERG Class ity of [facility] Medications This patient has no known medications. Procedures This patient has no known procedures. Encounters Start End Encounter Admission Attending Care Care Encounter Source Date/Time Date/Time Type Type Clinicians Facility Department ID 2020-06-23 2020-06-23 Outpatient Rosy CEE ORDAVIDA [facility] [id number] [facility] 08:55:00 08:55:00 YAS rosie [facility] Results This patient has no known results.
[2022-06-26 14:30] LABS: Absolute Lymphocytes (CBC) 1.2 K/uL (0.7-4.9); Hematocrit 21.9 % (36.0-45.0); Lymphocytes % 28.4 % (15.3-44.8); MCV 111.5 fL (80-100); MPV 7.6 fL (7.6-11.3); RBC Red Blood Cell Count 1.97 M/uL (3.86-4.86)
[2022-06-26 14:48] LABS: Albumin 3.7 g/dL (3.4-5.0); Bilirubin Total 1.3 mg/dL (0.2-1.0); Potassium 4.2 mmol/L (3.5-5.1); Protein, Total 6.3 g/dL (6.4-8.2)
--- NOTE | 2022-06-26 15:07 | ER ---
Nurse's Notes [facility] Name: Claudia Thomas Age: 87 yrs Sex: Female : 1935 Arrival Date: 06/26/2022 Time: 13:25 Bed 5 Private MD: Trenton Nathan V Diagnosis: Fluid overload, unspecified;Anemia, unspecified Presentation: 06/26 13:36 Chief complaint: Patient states: Pt has history of anemia - Dr. Mathur referred to ER due ld1 to low HGB. C/O fatigue. Coronavirus screen: At this time, the client does not indicate any symptoms associated with coronavirus-19. Ebola Screen: No symptoms or risks identified at this time. Initial Sepsis Screen: Does the patient meet any 2 criteria? No. Patient's initial sepsis screen is negative. Does the patient have a suspected source of infection? No. Patient's initial sepsis screen is negative. Risk Assessment: Do you want to hurt yourself or someone else? Patient reports no desire to harm self or others. Onset of symptoms was June 26, 2022 at 13:38. 13:36 Method Of Arrival: Ambulatory ld1 13:36 Acuity: ALFRED 3 ld1 Triage Assessment: 13:36 General: Appears in no apparent distress. comfortable, Behavior is calm, cooperative, ld1 appropriate for age. Pain: Denies pain. EENT: No signs and/or symptoms were reported regarding the EENT system. Neuro: Level of Consciousness is awake, alert, obeys commands, Oriented to person, place, time, situation. Cardiovascular: Capillary refill < 3 seconds Patient's skin is warm and dry. Respiratory: Airway is patent Respiratory effort is even, unlabored. GI: Abdomen is round non-distended. Historical: - Allergies: 13:36 No Known Allergies; ld1 - Home Meds: 13:36 allopurinol 100 mg Oral tab 1 tab 3 times per day [Active]; losartan 100 mg Oral tab 1 ld1 tab once daily [Active]; gabapentin 300 mg/6 mL (6 mL) oral soln 6 mL 3 times per day [Active]; - PMHx: 13:36 Anemia; CHF; COLON CA; Hypertension; ld1 - PSHx: 13:36 bowel resection; hysterectomy; ld1 - Immunization history:: Adult Immunizations up to date, Client reports having NOT received the Covid vaccine. - Social history:: Smoking status: Patient denies any tobacco usage or history of. Patient/guardian denies using alcohol. Screenin:45 [facility] ED Fall Risk Assessment (Adult) History of falling in the last 3 months, aa5 including since admission No falls in past 3 months (0 pts) Confusion or Disorientation No (0 pts) Intoxicated or Sedated No (0 pts) Impaired Gait No (0 pts) Mobility Assist Device Used Yes (1 pt) Altered Elimination No (0 pt) Score/Fall Risk Level 0 - 2 = Low Risk. Abuse screen: Denies threats or abuse. Nutritional screening: No deficits noted. Tuberculosis screening: No symptoms or risk factors identified. Assessment: 13:45 General: Appears comfortable, Behavior is calm, cooperative. Pain: Denies pain. Neuro: aa5 Level of Consciousness is awake, alert, obeys commands, Oriented to person, place, time, situation. Cardiovascular: Heart tones S1 S2 present Patient's skin is warm and dry. Rhythm is regular. Respiratory: Airway is patent Respiratory effort is even, unlabored, Respiratory pattern is regular, symmetrical. GI: Abdomen is round non-distended, Bowel sounds present X 4 quads. Abd is soft and non tender X 4 quads. Patient currently denies bloody stool, diarrhea, nausea, vomiting. : No signs and/or symptoms were reported regarding the genitourinary system. EENT: No signs and/or symptoms were reported regarding the EENT system. Derm: Skin is dry, Skin is pale, Skin temperature is warm. Musculoskeletal: Range of motion: intact in all extremities. Vital Signs: 13:36 BP 136 / 51; Pulse 80; Resp 18; Temp 98.1(TE); Pulse Ox 97% on R/A; Weight 77.11 kg; ld1 Height 5 ft. 3 in. (160.02 cm); Pain 0/10; 13:36 Body Mass Index 30.11 (77.11 kg, 160.02 cm) ld1 ED Course: 13:25 Patient arrived in ED. am2 13:25 Trenton Nathan MD is Private Physician. am2 13:31 Kmi Rockwell FNP-C [facility]. snw 13:31 Quirino Epperson DO is Attending Physician. snw 13:36 Arm band placed on right wrist. ld1 13:38 Triage completed. ld1 13:45 Patient has correct armband on for positive identification. Placed in gown. Bed in low aa5 position. Call light in reach. Side rails up X2. Adult w/ patient. 13:48 Daphne Montoya, RN is Primary Nurse. aa5 14:00 Initial lab(s) drawn, by me, sent to lab. Inserted saline lock: 20 gauge in left aa5 antecubital area, using aseptic technique. Blood collected. 15:05 Trenton Nathan MD is Referral Physician. snw 15:50 No provider procedures requiring assistance completed. IV discontinued, intact, iw bleeding controlled, No redness/swelling at site. Pressure dressing applied. Administered Medications: 15:47 Drug: Lasix (furosemide) 20 mg Route: IVP; Site: left antecubital; iw Medication: 15:50 VIS not applicable for this client. iw Outcome: 15:06 Discharge ordered by . snw 15:50 Discharged to home ambulatory. iw 15:50 Condition: good 15:50 Discharge instructions given to patient, family, Instructed on discharge instructions, follow up and referral plans. Demonstrated understanding of instructions, follow-up care. 15:50 Patient left the ED. iw Signatures: Kim Rockwell, INSTRUMENT REPAIR TECHNICIAN-C INSTRUMENT REPAIR TECHNICIAN-Csnw Marina Ridley, RN DINESH iw Daphne Montoya, RN RN aa5 Elsa Murray Lauren RN RN ld1
--- NOTE | 2022-06-26 15:07 | EDPHYS ---
Physician Documentation [facility] Name: Claudia Thomas Age: 87 yrs Sex: Female : 1935 Arrival Date: 06/26/2022 Time: 13:25 Bed 5 Private MD: Trenton Nathan V ED Physician Quirino Epperson HPI: 06/26 14:32 This 87 yrs old Female presents to ER via Ambulatory with complaints of Abnormal Lab snw Results. 14:32 Onset: The symptoms/episode began/occurred acutely. Associated signs and symptoms: snw Pertinent positives: fatigue. The patient has experienced similar episodes in the past. sees Dr. Mathur. Pt in remission from colon cancer but has "something wrong with her blood". Pt to have bone marrow biopsy at [facility] on the but has experienced increased fatigue and malaise.. Historical: - Allergies: 13:36 No Known Allergies; ld1 - Home Meds: 13:36 allopurinol 100 mg Oral tab 1 tab 3 times per day [Active]; losartan 100 mg Oral tab 1 ld1 tab once daily [Active]; gabapentin 300 mg/6 mL (6 mL) oral soln 6 mL 3 times per day [Active]; - PMHx: 13:36 Anemia; CHF; COLON CA; Hypertension; ld1 - PSHx: 13:36 bowel resection; hysterectomy; ld1 - Immunization history:: Adult Immunizations up to date, Client reports having NOT received the Covid vaccine. - Social history:: Smoking status: Patient denies any tobacco usage or history of. Patient/guardian denies using alcohol. ROS: 14:32 Eyes: Negative for injury, pain, redness, and discharge, ENT: Negative for injury, snw pain, and discharge, Neck: Negative for injury, pain, and swelling, Cardiovascular: Negative for chest pain, palpitations, and edema, Respiratory: Negative for shortness of breath, cough, wheezing, and pleuritic chest pain, Abdomen/GI: Negative for abdominal pain, nausea, vomiting, diarrhea, and constipation, Back: Negative for injury and pain, : Negative for injury, bleeding, discharge, and swelling, MS/Extremity: Negative for injury and deformity, Skin: Negative for injury, rash, and discoloration, Neuro: Negative for headache, weakness, numbness, tingling, and seizure, Psych: Negative for depression, anxiety, suicide ideation, homicidal ideation, and hallucinations. 14:32 Constitutional: Positive for fatigue, malaise. Exam: 14:32 Constitutional: This is a well developed, well nourished patient who is awake, alert, snw and in no acute distress. Head/Face: Normocephalic, atraumatic. Eyes: Pupils equal round and reactive to light, extra-ocular motions intact. Lids and lashes normal. Conjunctiva and sclera are non-icteric and not injected. Cornea within normal limits. Periorbital areas with no swelling, redness, or edema. ENT: Nares patent. No nasal discharge, no septal abnormalities noted. Tympanic membranes are normal and external auditory canals are clear. Oropharynx with no redness, swelling, or masses, exudates, or evidence of obstruction, uvula midline. Mucous membranes moist. Neck: Trachea midline, no thyromegaly or masses palpated, and no cervical lymphadenopathy. Supple, full range of motion without nuchal rigidity, or vertebral point tenderness. No Meningismus. Chest/axilla: Normal chest wall appearance and motion. Nontender with no deformity. No lesions are appreciated. Cardiovascular: Regular rate and rhythm with a normal S1 and S2. No gallops or rubs. + flow murmur. Normal PMI, no JVD. No pulse deficits. Respiratory: Lungs have equal breath sounds bilaterally, clear to auscultation and percussion. No rales, rhonchi or wheezes noted. No increased work of breathing, no retractions or nasal flaring. Abdomen/GI: Soft, non-tender, with normal bowel sounds. No distension or tympany. No guarding or rebound. No evidence of tenderness throughout. Back: No spinal tenderness. No costovertebral tenderness. Full range of motion. Skin: Warm, dry with normal turgor. Normal color with no rashes, no lesions, and no evidence of cellulitis. MS/ Extremity: Pulses equal, no cyanosis. Neurovascular intact. Full, normal range of motion. Neuro: Awake and alert, GCS 15, oriented to person, place, time, and situation. Cranial nerves II-XII grossly intact. Motor strength 5/5 in all extremities. Sensory grossly intact. Cerebellar exam normal. Normal gait. Psych: Awake, alert, with orientation to person, place and time. Behavior, mood, and affect are within normal limits. Vital Signs: 13:36 BP 136 / 51; Pulse 80; Resp 18; Temp 98.1(TE); Pulse Ox 97% on R/A; Weight 77.11 kg; ld1 Height 5 ft. 3 in. (160.02 cm); Pain 0/10; 13:36 Body Mass Index 30.11 (77.11 kg, 160.02 cm) ld1 MDM: 13:34 Patient medically screened. snw 15:04 Differential diagnosis: overload, anemia. Data reviewed: vital signs, nurses notes, lab snw test result(s). Care significantly affected by the following chronic conditions: Congestive Heart Failure, Cancer, anemia. Counseling: I had a detailed discussion with the patient and/or guardian regarding: the historical points, exam findings, and any diagnostic results supporting the discharge/admit diagnosis, lab results, the need for outpatient follow up, for definitive care, to return to the emergency department if symptoms worsen or persist or if there are any questions or concerns that arise at home. Special discussion: Based on the history and exam findings, there is no indication for further emergent testing or inpatient evaluation. I discussed with the patient/guardian the need to see the primary care provider for further evaluation of the symptoms. 06/26 13:51 Order name: CBC with Diff snw 06/26 13:51 Order name: CMP snw 06/26 13:51 Order name: Lipase snw 06/26 13:51 Order name: IV Saline Lock; Complete Time: 14:16 snw 06/26 13:51 Order name: Labs collected and sent; Complete Time: 14:17 snw 06/26 13:51 Order name: TS snw 06/26 13:52 Order name: BNP snw 06/26 14:39 Order name: CBC with Automated Diff EDMS 06/26 14:48 Order name: Comprehensive Metabolic Panel; Complete Time: 14:50 EDMS 06/26 14:48 Order name: NT PRO-BNP; Complete Time: 14:50 EDMS 06/26 14:48 Order name: Lipase; Complete Time: 14:50 EDMS Administered Medications: 15:47 Drug: Lasix (furosemide) 20 mg Route: IVP; Site: left antecubital; iw Disposition: 15:33 Co-signature as Attending Physician, Quirino Epperson DO I was immediately available on-site ms3 in the Emergency Department for consultation in the care of the patient. Disposition Summary: 06/26/22 15:06 Discharge Ordered Location: Home snw Condition: Stable snw Diagnosis - Fluid overload, unspecified snw - Anemia, unspecified snw Followup: snw - With: Trenton Nathan MD - When: 2 - 3 days - Reason: Recheck today's complaints, Continuance of care, Re-evaluation by your physician Followup: snw - With: Emergency Department - When: As needed - Reason: Worsening of condition Discharge Instructions: - Discharge Summary Sheet snw - Anemia snw - Heart Failure, Diagnosis snw - Heart Failure, Self Care snw - Heart Failure Action Plan snw Forms: - Medication Reconciliation Form snw - Thank You Letter snw - Antibiotic Education snw - Prescription Opioid Use snw Signatures: Dispatcher [employer] EDMS Kim Rockwell, TIME RECORDER-C TIME RECORDER-Csnw Marina Ridley RN Quirino Jones DO DO ms3 Shirin Lewis RN RN ld1
[2022-06-26] MEDS ORDERED: FUROSEMIDE 20 MG/ 2ML VIAL ONE (15:30)
[2022-06-26 18:02] LABS: Blood Morphology Comment NOTED (NOT SEEN); Platelet Estimate ADEQ; White Blood Cell Scan OK (OK)
[2022-06-26 18:03] LABS: Anisocytosis 2+; Poikilocytosis 1+
== END 2022-06-26 15:50 | disposition home or self-care (01) ==
LOC: ER 13:23
DX: E87.70 Fluid overload, unspecified (principal); D64.9 Anemia, unspecified; Z85.038 Personal history of other malignant neoplasm of large intestine; I10 Essential (primary) hypertension
CPT/HCPCS: 85025; 36415; 86900; 86850; 86901; 83690; 80053; 83880; 96374; 99283; J1940

== ENCOUNTER 2023-02-01 14:29 | Observation (INO) | payer OTHER, MEDICARE ==
--- OUTSIDE RECORDS SUMMARY | 2023-02-01 14:33 | XMS REPORT | Continuity of Care Document ---
:1935 Author Organization [facility] t Address [address] [place] [address] [place] [id number] Care Team Providers Name Role Phone FARIDA MATHUR Attending Clinician Unavailable Farida Mathur Attending Clinician YAS CEE Attending Clinician Unavailable Payers Payer Name Policy Type Policy Number Effective Date Expiration Date S tere MEDICARE PART A \T\ [id number] 1999 B 00:00:00 [facility] [id number] 2015 MEDICARE SUPPLEMENT 00:00:00 Problems Condition Condition Condition Status Onset Resolution Last Treating Co mments Source Name Details Category Date Date Treatment Clinician Date IRON IRON Diagnosis Active 2022-07-07 Mem oria DEFICEINCY DEFICEINCY 2- 09:08:00 l ANEMIA, ANEMIA, 00:00: Addison R/O MDS OR R/O MDS OR 00 CKD CKD Active 06/23/2022 [facility] Simple Simple Problem Active 2022-07-06 Sonny jono obesity obesity 07:51:46 l (disorder) (disorder) He rmann Active Problem 07/06/2022 [facility] IRON IRON Diagnosis Active 2022-07-07 Mem oria DEFICIENCY DEFICIENCY 09:08:00 l ANEMIA ANEMIA Armstrong SECONDARY SECONDARY TO BLOO TO BLOO Active [facility] Allergies, Adverse Reactions, Alerts Allergy Allergy Status Severity Reaction(s) Onset Inactive Treating Comm ents Source Name Type Date Date Clinician NO KNOWN Drug Active [facility] ALLERGIE Class ity of [facility] Social History Smoking Status Start Date Stop Date Source Tobacco smoking status [facility] Medications Ordered Filled Start Stop Current Ordering Indication Dosage Frequency Signature Comments Components Source Medication Medication Date Date Medication? Clinician (SIG) Name Name hydrochloro Yes 25 mg = 1 M emoria thiazide 25 3-10 tab, PO, l mg oral 16:04: Daily, # Choco n tablet 00 30 tab, 0 Refill(s) gabapentin Yes 300 mg = 1 M emoria 300 mg oral 3-10 cap, PO, l capsule 16:03: Daily, 0 Choco n 00 Refill(s) losartan Yes 100 mg, Memori a 3-02 PO, QAM, 0 l 20:39: Refill(s) Armstrong 00 PARoxetine Yes 10 mg, PO, M emoria 02 QAM, 0 l 20:39: Refill(s) Armstrong 00 Vital Signs Vital Name Observation Time Observation Value Comments Source Height 2022-06-25 20:36:00 5 [ft_i] [facility] Weight 2022-06-25 20:36:00 [facility] BMI Calculated 2022-06-25 20:36:00 David Calixto Procedures This patient has no known procedures. Encounters Start End Encounter Admission Attending Care Care Encounter Source Date/Time Date/Time Type Type Clinicians Facility Department ID 2022-07-03 2022-07-04 Outpatient HUYEN [facility] [id number] Memoria 15:22:00 05:59:[address] [place] [address] 2022-07-03 2022-07-03 Outpatient JOURDAN MATHURBL BL [id number] [facility]BL 09:22:00 23:59:00 FARIDA 2022-07-03 2022-07-[address] [id number] 09:22:00 23:59:00 [facility] [address] 2020-06-23 2020-06-[address] [facility] [id number] [facility] 08:55:00 08:55:00 YAS pak [facility] 2020-01-08 2020-01-08 Outpatient HUYEN MATSON [id number] Memoria 09:00:00 09:00:00 01 wilmar Jaime Results Test Description Test Time Test Comments Results Result Comments Source HEMATOLOGY 2022-07-03 16:10:00 Test Item Value Reference Range Interpretation Comme nts WBC (test code = WBC) 3.6 3.7-10.4 [facility]52[facility]55-01 16:10:00 Test Item Value Reference Range Interpretation Comments RBC (test code = RBC) 2.09 4.20-5.40 [facility] AreaXmieczzFKMDOBQKFJ9711-01-99 16:10:00 Test Item Value Reference Range Interpretation Comments Hgb (test code = Hgb) 7.9 12.0-16.0 [facility] AreaHefsonzJZZNKGKBKC8891-16-92 16:10:00 Test Item Value Reference Range Interpretation Comments Hct (test code = Hct) 23.5 36.0-48.0 [facility] AreaJrspwujEDGYSNCRJP0102-40-11 16:10:00 Test Item Value Reference Range Interpretation Comments MCV (test code = MCV) 112.5 80.0-98.0 [facility] AreaXuvabjmNRINSJWFDZ7083-24-59 16:10:00 Test Item Value Reference Range Interpretation Comments MCH (test code = MCH) 37.9 pg 27.0-31.0 [facility] AreaDjmofecTAXBXMNCHN0052-97-02 16:10:00 Test Item Value Reference Range Interpretation Comments MCHC (test code = MCHC) 33.6 32.0-36.0 [facility] [id number] 16:10:00 Test Item Value Reference Range Interpretation Comments RDW (test code = RDW) 14.2 11.5-14.5 [facility] AreaBoxudxaEMQWQLNVUY2132-05-28 16:10:00 Test Item Value Reference Range Interpretation Comments Platelet (test code = Platelet) 265 133-450 [facility] AreaCwxytwfEHMHZMDABV8037-40-67 16:10:00 Test Item Value Reference Range Interpretation Comments MPV (test code = MPV) 7.9 7.4-10.4 [facility] AreaIelkmhzKOQJUERSVK1522-29-72 16:10:00 Test Item Value Reference Range Interpretation Comments Macrocyte (test code = 3+ *NA*(07/03/22 Macrocyte) 10:10 AM) [facility] AreaZfgjhcnWPUFWUOSPC2524-26-14 16:10:00 Test Item Value Reference Range Interpretation Comments Segs (test code = Segs) 52.3 45.0-75.0 [facility] AreaFpdespkFARTRLKUBQ7417-40-34 16:10:00 Test Item Value Reference Range Interpretation Comments Lymphocytes (test code = Lymphocytes) 31.5 20.0-40.0 [place] [id number] 16:10:00 Test Item Value Reference Range Interpretation Comments Monocytes (test code = Monocytes) 13.4 2.0-12.0 [facility] [id number] 16:10:00 Test Item Value Reference Range Interpretation Comments Eosinophils (test code = Eosinophils) 1.5 <=4.0 [place] [id number] 16:10:00 Test Item Value Reference Range Interpretation Comments Basophils (test code = Basophils) 1.3 <=1.0 [place] [id number] 16:10:00 Test Item Value Reference Range Interpretation Comments Neutrophils # (test code = Neutrophils 1.9 1.5-8.1 #) [facility] Ar[id number] 16:10:00 Test Item Value Reference Range Interpretation Comments Lymphocytes # (test code = Lymphocytes 1.1 1.0-5.5 #) [facility] AreaQrlpeysVKNBAHOQGF7866-55-41 16:10:00 Test Item Value Reference Range Interpretation Comments Monocytes # (test code = Monocytes #) 0.5 <=0.8 [place] [id number] 16:10:00 Test Item Value Reference Range Interpretation Comments Eosinophils # (test code = Eosinophils 0.1 <=0.5 #) [facility] [id number] 16:10:00 Test Item Value Reference Range Interpretation Comments Basophils # (test code = Basophils #) 0.0 <=0.2 [place] [id number] 16:10:00 Test Item Value Reference Range Interpretation Comments Retic Perf (test code = Yes (07/03/22 10:10 AM) Retic Perf) [facility] AreaJgfqswzQIEXAFYZXZ1108-78-23 16:10:00 Test Item Value Reference Range Interpretation Comments Retic Auto (test code = Retic Auto) 1.5 0.5-1.5 [facility]
[2023-02-01] MEDS ORDERED: DIPHENHYDRAMINE 25 MG TAB/CAP PO PRN (16:00)
[2023-02-01] MEDS ORDERED: POLYETHYL GLY 3350 17 GM/DOSE PO PRN (16:00)
[2023-02-01] MEDS ORDERED: LOPERAMIDE HCL 2 MG CAPSULE PO PRN (16:00)
[2023-02-01] MEDS ORDERED: NACHLORIDE 0.45% 1,000 ML IV SCH (16:00)
[2023-02-01] MEDS ORDERED: ACETAMINOPHEN 325 MG TABLET PO PRN (16:00)
[2023-02-01] MEDS ORDERED: ONDANSETRON 4 MG (ODT) TAB PO PRN (16:00)
[2023-02-01] MEDS ORDERED: INFLUENZA VACCINE (for 6+ mo) 0.5 ML DOSE IMVAC ONE (16:00)
[2023-02-01] MEDS ORDERED: ONDANSETRON 4 MG/2 ML VIAL IV PRN (16:00)
[2023-02-01] MEDS ORDERED: PNEUMOCOCCAL VACCINE 0.5 ML IMVAC ONE (16:00)
[2023-02-01 16:04] LABS: Absolute Lymphocytes (CBC) 1.2 K/uL (0.7-4.9); Hematocrit 24.5 % (36.0-45.0); Lymphocytes % 29.5 % (15.3-44.8); MCV 113.1 fL (80-100); MPV 9.4 fL (7.6-11.3); Platelets 218 thou/uL (152-406); RBC Red Blood Cell Count 2.17 M/uL (3.86-4.86)
[2023-02-01 16:10] LABS: Magnesium 2.2 mg/dL (1.6-2.4); Potassium 3.8 mEq/L (3.5-5.1)
[2023-02-01] MEDS ORDERED: NA CHLORIDE 0.9% 250 ML ONE (16:16)
[2023-02-01 17:32] VITALS: BMI 30.1
[2023-02-01] MEDS: PANTOPRAZOLE INJ 80 MG in NA CHLORIDE 0.9% 250 ML IV SCH (18:00)
[2023-02-01] MEDS: FUROSEMIDE 20 MG/ 2ML VIAL IV SCH (21:48)
[2023-02-01 23:08] LABS: Hematocrit 25.1 % (36.0-45.0)
--- NOTE | 2023-02-01 23:11 | RAD REPORT ---
EXAM DESCRIPTION: RADChest Single View02/01/2023 5:32 pm CLINICAL HISTORY: DR. ALAS DIRECT ADMIT COMPARISON: Abdomen 1 View (KUB) dated 01/05/2022; Chest Single View dated 12/23/2021; Chest Single Vi ew dated 12/21/2021; Chest Single View dated 01/05/2020 TECHNIQUE: Portable AP view of the chest. FINDINGS: The lungs are clear. Medial right lung subsegmental opacification, suggestive of atelectas is, stable. No pneumothorax or effusion. The cardiomediastinal contours are unremarkable. IMPRESSION: No acute cardiopulmonary process.
[2023-02-02] MEDS ORDERED: NA CHLORIDE 0.9% 250 ML ONE (00:30)
[2023-02-02] MEDS: FUROSEMIDE 20 MG/ 2ML VIAL IV SCH (04:14)
[2023-02-02] MEDS: PANTOPRAZOLE INJ 80 MG in NA CHLORIDE 0.9% 250 ML IV SCH ×2 (04:14→17:20)
[2023-02-02 04:51] LABS: Absolute Lymphocytes (CBC) 1.2 K/uL (0.7-4.9); Hematocrit 28.1 % (36.0-45.0); Lymphocytes % 37.4 % (15.3-44.8); MCV 100.5 fL (80-100); MPV 7.7 fL (7.6-11.3); Platelets 230 thou/uL (152-406)
[2023-02-02 05:12] LABS: Magnesium 2.1 mg/dL (1.6-2.4); Potassium 3.7 mEq/L (3.5-5.1)
[2023-02-02 05:22] LABS: Anisocytosis 3+; Blood Morphology Comment NOTED (NOT SEEN); Macrocytosis 2+; Ovalocytes 2+; Platelet Estimate ADEQ; White Blood Cell Scan OK (OK)
[2023-02-02] MEDS ORDERED: HEPARIN 500 UNIT/5 ML SYR IV ONE (05:41)
--- NOTE | 2023-02-02 07:37 | RAD REPORT ---
EXAM DESCRIPTION: NM - GI Blood Loss Imaging - 02/02/2023 7:30 am CLINICAL HISTORY: Gastrointestinal bleeding COMPARISON: None. TECHNIQUE: The patient was administered 25.1 millicuries technetium labeled red blood cells. Dynamic images of the abdomen and pelvis were obtained for 60 minutes FINDINGS: No abnormal radiotracer activity is seen within the bowel. No abnormality displayed IMPRESSION: No evidence of active gastrointestinal bleeding during the examination
[2023-02-02 09:23] VITALS: O2SAT 98
[2023-02-02] MEDS: METOCLOPRAMIDE 10 MG/2mL INJ IV SCH ×3 (11:00→17:33)
[2023-02-02] MEDS ORDERED: MAGNESIUM CITRATE 300 ML BOT PO SCH (13:00)
[2023-02-02] MEDS ORDERED: GOLYTELY 4000 ML PO SCH (14:00)
[2023-02-02 16:59] VITALS: TEMP 97.6
[2023-02-02 18:27] VITALS: BP 158/60
--- NOTE | 2023-02-02 21:15 | P.DS ---
Admission Date: 02/01/23 Discharge Date: 02/02/23 Disposition: ROUTINE DISCHARGE Hospital Course: JEFFREY COMES IN WITH DYSPNEA AND MELANOTIC STOOL FOR 2 WEEKS. SHE COULD BARELY WALK WITH SUPPORT. I DID CBC BEFORE ADMISSION. I DECIDED TO TRANSFUSE IF SHE WAS 8 OR LESS SHE HAS CARDIAC HISTORY. SHE WAS AT 8 GM IN AM. SHE WAS GIVEN A UNIT OF PACKED RBCS AND I CALLED DR. VIRGEN TO GET EGD DONE NEXT DAY BUT IT DID NOT HAPPEN. AT 10 GM SHE WAS STABLE TO GO HOME AND DO EGD ON OP BASIS. Vital Signs/Physical Exam: Temp Pulse Resp BP Pulse Ox 97.6 F 78 14 158/60 H 99 02/02/23 16:00 02/02/23 18:00 02/02/23 18:00 02/02/23 18:00 02/02/23 18:00 Laboratory Data at Discharge: WBC 3.30 thou/uL (4.3-10.9) L 02/02/23 04:26 Hgb 10.1 g/dL (12.0-15.0) L D 02/02/23 04:26 Hct 28.1 % (36.0-45.0) L 02/02/23 04:26 Plt Count 230 thou/uL (152-406) 02/02/23 04:26 Sodium 139 mEq/L (136-145) 02/02/23 04:26 Potassium 3.7 mEq/L (3.5-5.1) 02/02/23 04:26 BUN 21 mg/dL (7-18) H 02/02/23 04:26 Creatinine 0.87 mg/dL (0.55-1.02) 02/02/23 04:26 Glucose 99 mg/dL (74-106) 02/02/23 04:26 Magnesium 2.1 mg/dL (1.6-2.4) 02/02/23 04:26 Home Medications: Furosemide 20 mg PO DAILY 12/23/21 Losartan Potassium 100 mg PO DAILY 12/23/21 Pantoprazole [Protonix Tab] 40 mg PO [id number] 30 Days #30 tab 01/12/22 Followup: Trenton Nathan MD [Primary Care Provider] -
== END 2023-02-02 18:20 | disposition home or self-care (01) ==
LOC: 3RD-ICU 14:29 → UNDOADMOB 14:29
PROVIDERS: ADMIT Internal Medicine; ATTEND Internal Medicine
DX: D64.9 Anemia, unspecified (principal); R53.1 Weakness; R53.83 Other fatigue
CPT/HCPCS: 36430; 87040; 85025 ×2; 80048 ×2; 36415; 86900; 83735 ×2; 86850; 86901; 86920 ×2; 85018; 85014; 71045; 78278; J1940 ×2; J2765; C9113 ×2; J1642; P9016 ×2; J7050 ×4; A9560; G0378

== ENCOUNTER → 2023-04-24 | Emergency (ER) | payer OTHER, MEDICARE ==
[~2023-04-24] MED LIST: HYDROCODONE/CHLORPHEN 5 ML/OSYR ONE
[2023-04-24 09:00] LABS: Absolute Lymphocytes (CBC) 0.6 K/uL (0.7-4.9); Hematocrit 26.3 % (36.0-45.0); Lymphocytes % 23.2 % (15.3-44.8); MPV 7.9 fL (7.6-11.3); Platelets 286 thou/uL (152-406); RBC Red Blood Cell Count 2.29 M/uL (3.86-4.86)
[2023-04-24 09:18] LABS: Potassium 4.1 mEq/L (3.5-5.1); Troponin High Sensitivity 8.8 pg/mL (<58.9)
--- NOTE | 2023-04-24 09:40 | RAD REPORT ---
EXAM DESCRIPTION: [place] Single View04/24/2023 9:35 am CLINICAL HISTORY: Cough COMPARISON: January 2023 FINDINGS: The lungs appear clear of acute infiltrate. The heart is moderately enlarged IMPRESSION: No acute abnormalities displayed
[2023-04-24 09:47] LABS: SARS-CoV-2 Antigen Rapid Res Negative (Negative)
[2023-04-24 10:16] LABS: Anisocytosis 2+; Blood Morphology Comment NOTED (NOT SEEN); Macrocytosis 2+; Platelet Estimate ADEQ; White Blood Cell Scan OK (OK)
--- NOTE | 2023-04-24 10:48 | EDPHYS ---
Physician Documentation [facility] Name: Claudia Thomas Age: 88 yrs Sex: Female : 1935 Arrival Date: 04/24/2023 Time: 08:26 Bed 8 Private MD: ED Physician Gerard Israel HPI: 04/24 08:47 This 88 yrs old Female presents to ER via Wheelchair with complaints of Cough, Chest rn Congestion, Chest Pain, General Weakness. 08:47 The patient or guardian reports cough. Onset: The symptoms/episode began/occurred 6 rn month(s) ago. Severity of symptoms: At their worst the symptoms were moderate, in the emergency department the symptoms are unchanged. Modifying factors: The symptoms are alleviated by nothing, the symptoms are aggravated by nothing. Associated signs and symptoms: Pertinent negatives: chest pain, fever, rhinorrhea, sore throat. The patient has experienced similar episodes in the past. Patient reports 6 months of cough, nonproductive, was on losartan and and changed already without effect. No fever. No shortness of breath. Does have history of congestive heart failure, no medication changes recently. Also history of chronic anemia and sees Dr. Mathur for shots. No fall or trauma recently.. Historical: - Allergies: 08:41 No Known Allergies; hb - Home Meds: 08:41 allopurinol 100 mg Oral tab 1 tab 3 times per day [Active]; gabapentin 300 mg/6 mL (6 hb mL) Oral soln 6 mL 3 times per day [Active]; Spironolactone Oral [Active]; Furosemide Oral [Active]; - PMHx: 08:41 Anemia; COLON CA; CHF; Hypertension; hb - PSHx: 08:41 bowel resection; hysterectomy; hb - Immunization history:: Adult Immunizations up to date. - Social history:: Smoking status: Patient denies any tobacco usage or history of. - Family history:: not pertinent. - Hospitalizations: : No recent hospitalization is reported. ROS: 08:47 Constitutional: Negative for fever, chills, and weight loss, Cardiovascular: Negative rn for chest pain, palpitations, and edema, Respiratory: Positive for cough Abdomen/GI: Negative for abdominal pain, nausea, vomiting, diarrhea, and constipation, MS/Extremity: Negative for injury and deformity, Skin: Negative for injury, rash, and discoloration, Neuro: Negative for headache, weakness, numbness, tingling, and seizure, Exam: 08:47 Constitutional: This is a well developed, well nourished patient who is awake, alert, rn and in no acute distress. Head/Face: Normocephalic, atraumatic. ENT: Dry mucous membranes, no stridor Cardiovascular: Regular rate and rhythm. No pulse deficits. Respiratory: No increased work of breathing, no retractions or nasal flaring. Abdomen/GI: Soft, nontender MS/ Extremity: Pulses equal, no cyanosis. Neuro: Awake and alert, GCS 15 Vital Signs: 08:39 BP 154 / 56; Pulse 79; Resp 18; Temp 98.9(O); Pulse Ox 98% on R/A; Weight 77.11 kg; hb Height 5 ft. 3 in. ; Pain 5/10; 09:49 BP 129 / 56; Pulse 68; Resp 15; Pulse Ox 97% on R/A; ld1 09:50 BP 129 / 56; Pulse 70; Resp 21; Pulse Ox 98% on R/A; ld1 08:39 Body Mass Index 30.11 (77.11 kg, 160.02 cm) hb 08:39 Pain Scale: Adult hb MDM: 08:28 Patient medically screened. rn 10:38 Differential Diagnosis: Bronchitis Influenza Upper Respiratory Infection Viral Syndrome rn Pneumonia Other acid reflux, allergies, medication side effect. Data reviewed: vital signs, nurses notes, lab test result(s), radiologic studies, and as a result, I will discharge patient. Independent interpretation of the following test(s) in the Emergency Department EKG: See my EKG interpretation above X-Ray: My interpretation is Chest x-ray images negative for pneumothorax or infiltrate per my interpretation. Counseling: I had a detailed discussion with the patient and/or guardian regarding the historical points, exam findings, and any diagnostic results supporting the discharge/admit diagnosis, lab results, radiology results, the need for outpatient follow up, to return to the emergency department if symptoms worsen or persist or if there are any questions or concerns that arise at home. Special discussion: I discussed with the patient/guardian in detail that at this point there is no indication for admission to the hospital. It is understood, however, that if the symptoms persist or worsen the patient needs to return immediately for re-evaluation. ED course: No evidence of infection, no pneumothorax, troponin negative, no evidence of pulmonary edema. Will try cough medication and PCP follow-up. Already changed from losartan to another medication weeks ago, no evidence of acid reflux.. 04/24 08:44 Order name: Basic Metabolic Panel; Complete Time: 09:45 rn 04/24 08:44 Order name: CBC with Diff; Complete Time: 10:35 rn 04/24 08:44 Order name: NT PRO-BNP; Complete Time: 09:45 rn 04/24 08:44 Order name: Troponin HS; Complete Time: 09:45 rn 04/24 08:44 Order name: SARS RAPID; Complete Time: 10:35 rn 04/24 08:44 Order name: Flu; Complete Time: 10:35 rn 04/24 09:10 Order name: CBC Smear Scan; Complete Time: 10:35 EDMS 04/24 08:44 Order name: XRAY Chest (1 view); Complete Time: 09:45 rn 04/24 08:44 Order name: EKG; Complete Time: 08:45 rn 04/24 08:44 Order name: Cardiac monitoring; Complete Time: 08:48 rn 04/24 08:44 Order name: EKG - Nurse/Tech; Complete Time: 08:56 rn 04/24 08:44 Order name: IV Saline Lock; Complete Time: 08:56 rn 04/24 08:44 Order name: Labs collected and sent; Complete Time: 08:56 rn 04/24 08:44 Order name: O2 Per Protocol; Complete Time: 08:47 rn 04/24 08:44 Order name: O2 Sat Monitoring; Complete Time: 08:47 rn Administered Medications: 10:51 Drug: Tussionex Pennkinetic ER PO Suspension 5 ml PO once Route: PO; iw Disposition Summary: 04/24/23 10:47 Discharge Ordered Notes: Location: Home rn Problem: new rn Symptoms: have improved rn Condition: Stable rn Diagnosis - Cough rn Followup: rn - With: Private Physician - When: As needed - Reason: Recheck today's complaints, Re-evaluation by your physician Discharge Instructions: - Discharge Summary Sheet rn - Cough, Adult rn Forms: - Medication Reconciliation Form rn - Thank You Letter rn - Antibiotic environmental health and safety intern - Prescription Opioid Use rn - Patient Portal Instructions rn - Leadership Thank You Letter rn Prescriptions: - Guaifenesin AC 10-100 mg/5 mL Oral Liquid - take 10 milliliters ORAL route every 4 hours As needed; 240 milliliter; rn Refills: 0, Product Selection Permitted Signatures: Dispatcher [employer] Marina Bedolla, RN RN Gerard Boone MD MD rn Baxter, Heather, RN RN hb
--- NOTE | 2023-04-24 10:48 | ER ---
Nurse's Notes [facility] Name: Claudia Thomas Age: 88 yrs Sex: Female : 1935 Arrival Date: 04/24/2023 Time: 08:26 Bed 8 Private MD: Diagnosis: Cough Presentation: 04/24 08:39 Chief complaint: Persistent cough, SOB, and chest "soreness" x 6 months, worse over the hb last few days. Denies fever. 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 Coronavirus screen: Client presents with at least one sign or symptom that may indicate coronavirus-19. Provider contacted for isolation considerations. Ebola Screen: No symptoms or risks identified at this time. Initial Sepsis Screen: Does the patient meet any 2 criteria? No. Patient's initial sepsis screen is negative. Does the patient have a suspected source of infection? No. Patient's initial sepsis screen is negative. Risk Assessment: Do you want to hurt yourself or someone else? Patient reports no desire to harm self or others. Onset of symptoms was September 2022. 08:39 Method Of Arrival: Wheelchair hb 08:39 Acuity: ALFRED 3 hb Historical: - Allergies: 08:41 No Known Allergies; hb - Home Meds: 08:41 allopurinol 100 mg Oral tab 1 tab 3 times per day [Active]; gabapentin 300 mg/6 mL (6 hb mL) Oral soln 6 mL 3 times per day [Active]; Spironolactone Oral [Active]; Furosemide Oral [Active]; - PMHx: 08:41 Anemia; COLON CA; CHF; Hypertension; hb - PSHx: 08:41 bowel resection; hysterectomy; hb - Immunization history:: Adult Immunizations up to date. - Social history:: Smoking status: Patient denies any tobacco usage or history of. - Family history:: not pertinent. - Hospitalizations: : No recent hospitalization is reported. Screenin:50 [facility] ED Fall Risk Assessment (Adult) History of falling in the last 3 months, ld1 including since admission No falls in past 3 months (0 pts). Abuse screen: Denies threats or abuse. Denies injuries from another. Nutritional screening: No deficits noted. Tuberculosis screening: No symptoms or risk factors identified. Assessment: 09:50 General: Appears in no apparent distress. comfortable, Behavior is calm, cooperative, ld1 appropriate for age. Pain: Denies pain. Neuro: Level of Consciousness is awake, alert, obeys commands, Oriented to person, place, time, situation. Cardiovascular: Capillary refill < 3 seconds Patient's skin is warm and dry. Respiratory: Airway is patent Respiratory effort is even, unlabored. GI: Abdomen is round non-distended. : No signs and/or symptoms were reported regarding the genitourinary system. EENT: No signs and/or symptoms were reported regarding the EENT system. Derm: No signs and/or symptoms reported regarding the dermatologic system. Musculoskeletal: No signs and/or symptoms reported regarding the musculoskeletal system. Vital Signs: 08:39 BP 154 / 56; Pulse 79; Resp 18; Temp 98.9(O); Pulse Ox 98% on R/A; Weight 77.11 kg; hb Height 5 ft. 3 in. ; Pain 5/10; 09:49 BP 129 / 56; Pulse 68; Resp 15; Pulse Ox 97% on R/A; ld1 09:50 BP 129 / 56; Pulse 70; Resp 21; Pulse Ox 98% on R/A; ld1 08:39 Body Mass Index 30.11 (77.11 kg, 160.02 cm) hb 08:39 Pain Scale: Adult hb ED Course: 08:27 Patient arrived in ED. ts1 08:28 Gerard Israel MD is Attending Physician. rn 08:41 Triage completed. hb 08:42 Arm band placed on. hb 09:37 XRAY Chest (1 view) In Process Unspecified. EDMS 09:50 Patient has correct armband on for positive identification. Placed in gown. Bed in low ld1 position. Call light in reach. Side rails up X2. engine monitor on. Pulse ox on. NIBP on. Door closed. Noise minimized. Warm blanket given. 09:50 No provider procedures requiring assistance completed. Patient maintains SpO2 ld1 saturation greater than 95% on room air. 10:00 Marina Ridley, RN is Primary Nurse. iw 10:00 Provided Education on: . iw 11:07 IV discontinued, intact, bleeding controlled, No redness/swelling at site. ld1 Administered Medications: 10:51 Drug: Tussionex Pennkinetic ER PO Suspension 5 ml PO once Route: PO; iw Medication: 09:50 VIS not applicable for this client. ld1 Outcome: 10:47 Discharge ordered by . aliya 11:07 Discharged to home ambulatory, with family, ld1 11:07 Condition: stable 11:07 Discharge instructions given to patient, family, Instructed on discharge instructions, follow up and referral plans. Demonstrated understanding of instructions, follow-up care, 11:07 Patient left the ED. ld1 Signatures: Dispatcher [employer] EDMarina Green RN RN Gerard Israel MD MD rn Baxter, Heather, RN RN Shirin Epperson RN RN ld1 Felisa Weber PAS PAS ts1 Corrections: (The following items were deleted from the chart) 08:43 08:39 BP 154 / 56; Pulse 79bpm; Resp 18bpm; Pulse Ox 98% RA; Temp 98.9F Oral; Pain hb 5/10, Adult; hb
[2023-04-24 11:45] VITALS: BP 129/56; TEMP 98.9; O2SAT 98
== END ==
LOC: ER 08:26
DX: R05.9 Cough, unspecified (principal); Z11.52 Encounter for screening for COVID-19; I10 Essential (primary) hypertension; I50.9 Heart failure, unspecified; Z85.038 Personal history of other malignant neoplasm of large intestine
CPT/HCPCS: 36415; 71045; 80048; 83880; 84484; 85025; 87804; 87811; 93005; 99284

== ENCOUNTER 2023-10-20 15:20 | Observation (INO) | payer OTHER, MEDICARE ==
[2023-10-20 17:05] VITALS: BMI 27.8
[2023-10-20] MEDS: NACHLORIDE 0.45% 1,000 ML IV SCH (17:56)
[2023-10-20 18:05] LABS: Absolute Basophils 0.1 K/uL (0-0.5); Absolute Lymphocytes (CBC) 1.8 K/uL (0.7-4.9); Absolute Monocytes 0.9 K/uL (0.1-1.3); Absolute Neutrophil 3.4 K/uL (1.8-8.0); Basophils % 1.3 % (0-1.3); Eosinophils % 0.4 % (0-4.4); Hemoglobin 10.2 g/dL (12.0-15.0); Lymphocytes % 29.2 % (15.3-44.8); MCH 37.2 pg (27.0-35.0); MCV 109.5 fL (80-100); Monocytes % 14.9 % (3.3-12.3); Neutrophils % 54.2 % (41.7-73.7); Nucleated Red Blood Cells % 0.5 % (0-0); Platelets 371 thou/uL (152-406); RBC Red Blood Cell Count 2.74 M/uL (3.86-4.86); Red Cell Distribution Width 19.1 % (12.1-15.2)
[2023-10-20 18:07] LABS: Blood Morphology Comment NOTED (NOT SEEN); Macrocytosis 1+; Platelet Estimate ADEQ; White Blood Cell Scan OK (OK)
[2023-10-20 18:13] LABS: PTT, Activated Partial Thromb 25.8 SECONDS (24.3-36.9); Protime INR 1.28
[2023-10-20 18:24] LABS: Albumin 3.7 g/dL (3.4-5.0); Albumin/Globulin Ratio 1.4 (1.1-1.8); Anion Gap 8.6 mEq/L (5.0-15.0); Bilirubin Direct 0.5 mg/dL (0-0.2); Bilirubin Indirect, Calculated 1.2 mg/dL (0.2-0.8); Bilirubin Total 1.7 mg/dL (0.2-1.0); Globulin 2.7 g/dL (2.3-3.5); Potassium 3.6 mEq/L (3.5-5.1); Protein, Total 6.4 g/dL (6.4-8.2)
[2023-10-20 18:30] LABS: Magnesium 2.1 mg/dL (1.6-2.4); Phosphorus 3.6 mg/dL (2.5-4.9); Thyroid Stimulating Hormone 2.07 uIU/mL (0.358-3.740)
[2023-10-20 19:15] LABS: Specific Gravity 1.015 (1.005-1.030); Sqamous Epithelial <5 /HPF (None Seen); Urine Bacteria <20 /HPF (<20); Urine Bilirubin NEGATIVE (Negative); Urine Blood Negative (Negative); Urine Clarity Turbid (Clear); Urine Color Yellow (Yellow); Urine Culture Reflex Order REFLEXED; Urine Glucose NEGATIVE (Negative); Urine Ketones NEGATIVE (Negative); Urine Microscopic Reflex YN ORDER UMIC; Urine Mucus Slight /HPF (None Seen); Urine Nitrite NEGATIVE (Negative); Urine Protein NEGATIVE (Negative); Urine RBC <5 /HPF (None Seen); Urine Urobilinogen Normal (Normal); Urine WBC 20-50 /HPF (<5)
--- NOTE | 2023-10-20 21:42 | RAD REPORT ---
EXAM DESCRIPTION: CT - Chest For Pe Angio - 10/20/2023 9:30 pm CLINICAL HISTORY: abdominal pain COMPARISON: No comparisons TECHNIQUE: Dynamically enhanced axial 3 mm thick images of the chest were obtained during administra tion of <100> mL Isovue 370 IV contrast. Coronal and oblique reconstruction images were generated and reviewed. Exam utilizes a protocol for optimal evaluation of pulmonary arterial tree. Maximum intensity projections 3D imaging was utilized All CT scans are performed using dose optimization technique as appropriate and may include automated exposure control or mA/KV adjustment according to patient size. FINDINGS: Chest Wall: No suspicious thyroid nodules or pathologic lymphadenopathy. Lungs: No acute abnormality. Motion artifact. The most extreme portions of the lung bases are exclude d from the field of view. Pleura: No significant effusions or pneumothorax. Mediastinum/mindy: No pathologic lymphadenopathy. Pulmonary arteries/Aorta: No filling defect identified. No aortic aneurysm. Enlarged main pulmonary a rtery which indicate pulmonary hypertension. Heart: No significant pericardial effusion. Mild cardiomegaly. Coronary artery calcifications. Upper abdomen: No acute abnormality.Aortic valve calcifications. Bones: Slight compression deformity at T4 possibly representing a subacute compression fracture witho ut significant vertebral body height loss. IMPRESSION: Negative for pulmonary embolism. No acute findings in the chest. Ancillary findings as n oted above.
--- NOTE | 2023-10-20 21:47 | RAD REPORT ---
EXAM DESCRIPTION: CTAbdomen Pelvis W Contrast - 10/20/2023 9:30 pm CLINICAL HISTORY: abdominal pain COMPARISON: Abdomen Pelvis W Contrast dated 07/07/2023; Abdomen Pelvis W Contrast dated 12/23/2021 TECHNIQUE: CT of the abdomen and pelvis was performed with IV contrast. All CT scans are performed using dose optimization technique as appropriate and may include automated exposure control or mA/KV adjustment according to patient size. FINDINGS: Lower chest: Reference same-day chest CT Liver: Low-density lesion the hepatic dome is unchanged and benign. Biliary: No biliary ductal dilatation. Stomach: No significant focal abnormality. Duodenum: No significant focal abnormality. Pancreas: No significant abnormality. Spleen: No significant abnormality. Adrenal: No suspicious lesions. Kidney/ureter: No hydronephrosis. No renal calculi. Retroperitoneum: No retroperitoneal adenopathy. Vascular: No aneurysm. Bowel: Scattered air-fluid levels present within the small bowel and colon. No bowel obstruction.. Peritoneum: No ascites or free air. Bladder: Grossly unremarkable. Reproductive: Hysterectomy. Bones: No acute fracture. Multilevel degenerative changes are present in the spine. Other: n/a IMPRESSION: No acute intra-abdominal or pelvic finding. Scattered air-fluid levels within the small bowel in colon likely reflecting a mild enterocolitis/diarrheal disease. No bowel obstruction.
[2023-10-21 07:10] LABS: Absolute Eosinophils 0.1 K/uL (0-0.5); Absolute Monocytes 0.6 K/uL (0.1-1.3); Absolute Neutrophil 1.5 K/uL (1.8-8.0); Basophils % 1.3 % (0-1.3); Eosinophils % 2.7 % (0-4.4); Hematocrit 26.3 % (36.0-45.0); Hemoglobin 9.2 g/dL (12.0-15.0); MCV 108.5 fL (80-100); MPV 7.9 fL (7.6-11.3); Monocytes % 19.5 % (3.3-12.3); Neutrophils % 45.5 % (41.7-73.7); Nucleated Red Blood Cells % 0.3 % (0-0); Platelets 327 thou/uL (152-406); RBC Red Blood Cell Count 2.43 M/uL (3.86-4.86); Red Cell Distribution Width 18.5 % (12.1-15.2)
[2023-10-21 07:22] LABS: Anion Gap 7.6 mEq/L (5.0-15.0); Magnesium 1.9 mg/dL (1.6-2.4); Potassium 3.6 mEq/L (3.5-5.1)
[2023-10-21] MEDS: POTASSIUM 25 MEQ EFFERV TAB PO ONE (08:44)
[2023-10-21 11:01] VITALS: BP 121/58; TEMP 98.2
[2023-10-21 11:23] VITALS: O2SAT 99
--- NOTE | 2023-10-21 12:36 | P.DS ---
Admission Date: 10/20/23 Discharge Date: 10/21/23 Disposition: ROUTINE DISCHARGE Discharge Condition: [facility] Hospital Course: JEFFREY COMES WITH DIARRHEA AND TACHYCARDIA. SHE ON CT SCAN SHOWS ENERTITIS AND CT ANGIO IS NEG FOR PE OR CHF OR PNEUMONIA. SHE IS LOT BETTER. WILL CONTINUE FLAGYL. SHE HAS NO MORE DIARRHEA. WBC IS NORMAL. SHE IS STABLE FOR HOME. SHE HAS NO SIGNS OF BACTERIAL INFECTION. STOOL COULD NOT BE CALLECTED SHE HAS NO MORE DIARRHEA. Vital Signs/Physical Exam: Temp Pulse Resp BP Pulse Ox 98.2 F 88 18 121/58 L 99 10/21/23 08:00 10/21/23 08:00 10/21/23 08:00 10/21/23 08:00 10/21/23 08:00 Laboratory Data at Discharge: WBC 3.30 thou/uL (4.3-10.9) L 10/21/23 06:35 Hgb 9.2 g/dL (12.0-15.0) L D 10/21/23 06:35 Hct 26.3 % (36.0-45.0) L 10/21/23 06:35 Plt Count 327 thou/uL (152-406) 10/21/23 06:35 PT 14.0 SECONDS (9.4-12.5) H 10/20/23 17:39 INR 1.28 10/20/23 17:39 APTT 25.8 SECONDS (24.3-36.9) 10/20/23 17:39 Sodium 136 mEq/L (136-145) 10/21/23 06:35 Potassium 3.6 mEq/L (3.5-5.1) 10/21/23 06:35 BUN 21 mg/dL (7-18) H 10/21/23 06:35 Creatinine 0.67 mg/dL (0.55-1.02) 10/21/23 06:35 Glucose 98 mg/dL (74-106) 10/21/23 06:35 Phosphorus 3.6 mg/dL (2.5-4.9) 10/20/23 17:39 Magnesium 1.9 mg/dL (1.6-2.4) 10/21/23 06:35 Total Bilirubin 1.7 mg/dL (0.2-1.0) H 10/20/23 17:39 AST 16 U/L (15-37) 10/20/23 17:39 ALT 24 U/L (13-56) 10/20/23 17:39 Alkaline Phosphatase 85 U/L (45-117) 10/20/23 17:39 Home Medications: Metronidazole 500 mg PO TID #21 10/21/23 New Medications: Metronidazole 500 mg PO TID #21
--- NOTE | 2023-10-21 14:06 | EKG ---
Test Date: 2023-10-21 Test Time: 09:22:55 Wildlife Fore[employer] Geneticist: JOSELITO MEASUREMENT RESULTS: Intervals: Rate: 82 IL: 214 QRSD: 80 QT: 408 QTc: 476 [place]: P: 69 IL: 214 QRS: 20 T: 48 INTERPRETIVE STATEMENTS: Sinus rhythm with 1st degree AV block Low voltage QRS Prolonged QT Abnormal ECG Compared to ECG 04/24/2023 08:55:32 First degree AV block now present Low QRS voltage now present Prolonged QT interval now present Sinus arrhythmia no longer present Electronically Signed On 10-21-23 14:06:14 CDT by Jcarlos Zurita
== END 2023-10-21 13:58 | disposition home or self-care (01) ==
LOC: 4TH 16:02
PROVIDERS: ADMIT Internal Medicine; ATTEND Internal Medicine
DX: K52.9 Noninfective gastroenteritis and colitis, unspecified (principal)
CPT/HCPCS: 36415; 71275; 74177; 80048; 80076; 81001; 83605; 83735; 84100; 84145; 84443; 85025; 85610; 85730; 87040; 87086; 87088; 93005; G0378; G0379; Q9967